=== PATIENT | male | born 1965 | race Caucasian/White ===

== ENCOUNTER 2020-11-07 13:52 | Outpatient (CLI) | payer BC, SELFPAY ==
--- NOTE | ~2020-11-07 | XR_ITS ---
EXAMINATION: 1. XR knee LT min 4V 2. XR knee RT min 4V DATE: 11/07/2020 14:59 INDICATION: Bilateral knee pain. TECHNIQUE: 4 views of right knee and 4 views of left knee on a total of 5 radiographs were obtained. COMPARISON: None. FINDINGS: RIGHT KNEE: Bone alignment is normal. No fracture. There is mild tricompartmental osteoarthritis kirk acterized by tiny marginal osteophytes. No knee joint effusion. LEFT KNEE: Bone alignment is normal. No fracture. There is mild tricompartmental osteoarthritis gunjan cterized by tiny marginal osteophytes. No knee joint effusion. IMPRESSION: 1. Mild osteoarthritis of the knees. Reviewed, dictated and finalized at location A. ECTION WORKER IMPRESSION: 1. Mild osteoarthritis of the knees.
== END 2020-11-07 13:53 | disposition home or self-care (01) ==
LOC: CHSIMG 13:56
PROVIDERS: PCP Internal Medicine; Visit Provider Internal Medicine
DX: M25.562 Pain in left knee (principal); M25.561 Pain in right knee
CPT/HCPCS: 73564

== ENCOUNTER 2021-02-19 17:21 | Emergency (ER) | payer BC, SELFPAY ==
[2021-02-19 17:48] VITALS: BP 119/83; PULSE 76; RESP 20; TEMP 36.7; O2SAT 95
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
== END 2021-02-19 18:02 | disposition home or self-care (01) ==
PROVIDERS: Emergency Provider Emergency Medicine; PCP Internal Medicine
DX: S79.921A Unspecified injury of right thigh, initial encounter (principal); W22.8XXA Striking against or struck by other objects, initial encounter
CPT/HCPCS: 99282

== ENCOUNTER 2021-07-30 22:22 | Emergency (ER) | payer BC, SELFPAY ==
--- NOTE | ~2021-07-30 | XR_ITS ---
EXAMINATION: XR chest 1V portable 07/30/2021 23:10 INDICATION: Chest pain PROCEDURE: AP portable chest COMPARISON: No prior studies for comparison. FINDINGS: The lungs are clear. The cardiomediastinal silhouette is within normal limits. There are no pleural effusions. There is no pneumothorax suspected. IMPRESSION: 1: NO ACUTE CARDIOPULMONARY DISEASE. Reviewed, dictated and finalized at location A. HER PRODUCTION
--- NOTE | 2021-07-30 22:41 | ECG_ITS ---
Measurements Intervals [place] Rate: 68 P: 64 MI: 192 QRS: 59 QRSD: 93 T: 49 QT: 396 QTc: 422 Interpretive Statements SINUS RHYTHM INCOMPLETE RIGHT BUNDLE BRANCH BLOCK BASELINE ARTIFACT- I, II, III, AVR, AVL, AVF, V1-V6 BORDERLINE ECG Electronically Signed On 07-31-2021 6:48:01 LEARNING ADMINISTRATOR by Micah Jhaveri D.O.
[2021-07-30 22:48] VITALS: BP 142/77; PULSE 71; RESP 15; TEMP 36.4; O2SAT 96
[2021-07-30 23:02] LABS: Basophils Absolute Auto 0.12 K/mm3 (0.00-0.10); Basophils Percent Auto 1.4 % (0.0-1.0); Eosinophils Absolute Auto 0.39 K/mm3 (0.02-0.50); Eosinophils Percent Auto 4.5 % (1.0-6.0); Hematocrit 44.2 % (40.0-54.0); Immature Granulocyte Absolute 0.02 K/mm3 (0.00-0.00); Immature Granulocyte Percent A 0.2 % (0.0-0.0); Lymphocytes Absolute Auto 3.37 K/mm3 (1.10-4.50); Mean Corpuscular HGB Conc 33.9 g/dL (32.0-36.0); Mean Corpuscular Hemoglobin 30.5 pg (27.0-31.0); Mean Platelet Volume 9.1 fl (8.7-11.0); Monocytes Absolute Auto 0.61 K/mm3 (0.10-0.90); Monocytes Percent Auto 7.1 % (2.0-11.0); Neutrophils Absolute Auto 4.1 K/mm3 (1.7-7.2); Neutrophils Percent Auto 47.8 % (50.0-70.0); Platelet Count Result 315 K/mm3 (150-420); Red Blood Count 4.91 M/mm3 (4.70-6.10); Red Cell Distribution Width 12.5 % (11.6-14.4); White Blood Count 8.6 K/mm3 (4.8-10.8)
[2021-07-30 23:20] LABS: Alanine Aminotransferase 34 U/L (16-63); Albumin Level 3.8 g/dL (3.4-5.0); Alkaline Phosphatase 80 U/L (46-116); Anion Gap 11 mmol/L (8-16); Aspartate Amino Transferase 14 U/L (15-37); Bilirubin,Total 0.8 mg/dL (0.00-1.00); Blood Urea Nitrogen 19 mg/dL (7-18); Calcium 8.9 mg/dL (8.5-10.1); Carbon Dioxide 24 mmol/L (21-32); Chloride 106 mmol/L (98-108); Estimated CRCL calculation 106 ml/min; Estimated Glomerular Filt Rate > 60; Glucose 175 mg/dL (70-99); Lactic Acid Reflex 1.9 mmol/L (0.4-2.0); Osmolality Calculated 298 mOsm/kg (285-295); Potassium 4.2 mmol/L (3.5-5.1); Sodium 141 mmol/L (136-145); Total Protein 6.8 g/dL (6.4-8.2); Troponin I 11.2 ng/L (0.00-60.4)
[2021-07-30] MEDS: ASPIRIN 325 MG ENTERIC TABLET PO (23:37)
--- NOTE | 2021-07-30 23:45 | PC.NURSE ---
pt refused to have an IV started and refused IV fluid. md Lima notified
--- NOTE | 2021-07-31 00:35 | ED.CHESTPAIN ---
HPI - Chest Pain General Chief Complaint: Chest Pain Stated Complaint: hard time breathing,chest pain, may pass out Time Seen by Provider: 07/30/21 22:24 Source: patient and RN notes reviewed Mode of arrival: ambulatory Limitations: no limitations History of Present Illness complaint: chest heaviness Onset (ago): hour(s) (2) Timing of current episode: constant Prior episodes: No Onset: during rest and during exertion Pain location: substernal Pain radiation: none Severity: mild Pain scale (0-10): 2 Quality: heaviness Relieving factors: nothing Exacerbating factors: nothing Risk Factors Coronary artery disease risk factors: hyperlipidemia and hypertension Pulmonary embolism risk factors: immobilization Related Data Home Medications Medication Instructions Recorded Confirmed atorvastatin 10 mg PO DAILY 02/19/21 07/30/21 Allergies Allergy/AdvReac Type Severity Reaction Status Date / Time No Known Allergies Allergy Verified 07/30/21 22:45 Review of Systems Review of Systems: All systems reviewed & are unremarkable except as noted in HPI and below PMFSH Past Medical History Medical History (Updated 07/31/21 @ 01:34 by Carmencita Lima MD) Diabetes Hypertension 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 embolic cerebrovascular accident (CVA) Surgical History Surgical History (Updated 02/19/21 @ 23:10 by Roly Che MD) H/O toe surgery Family History Family History (Updated 02/19/21 @ 23:12 by Roly Che MD) Mother Diabetes mellitus Father Diabetes mellitus Heart disease Social History Social History (Updated 02/19/21 @ 23:13 by Roly Che MD) Smoking packs per day: 1 Smoking cigarettes per day: 20.0 Smoking status: Current every day smoker Tobacco type: cigarettes Alcohol intake: never Sexual Orientation (if Verbalized by the Patient): Straight or Heterosexual Exam Const: General: no acute distress and alert Nutritional Appearance: well nourished Orientation/consciousness: patient oriented x3 HENMT: Head: normal to inspection Ears: external ears normal and TM's normal bilaterally Mouth: Yes lip normal and Yes moist mucous membranes Teeth and gingiva: dentition normal Eyes: Conjunctivae: conjunctivae normal Pupils: Equal, round and reactive pupils present EOM: EOMs intact bilaterally Neck: Neck: normal visual inspection and no lymphadenopathy Chest: Chest palpation & inspection: normal inspection of the chest Resp: Effort & Inspection: normal respiratory effort Auscultation: clear to auscultation bilaterally Cardio: Rate: regular rate Rhythm: regular rhythm GI: Auscultation: normal bowel sounds : General: Yes bladder normal to palpation and Yes no CVA tenderness Male General Exam: Yes normal external exam Testes: Testes normal Back/Spine/Pelvis: Back: no CVA tenderness Skin: General skin exam: normal color Rashes: no rashes Neuro: General: patient oriented x3, moves all extremities, no meningeal signs, no focal motor deficits and CN's II-XI intact bilaterally Cranial nerves: Yes Nystagmus not present Extrem: General: normal to inspection and no pedal edema Psych: Appearance: grossly normal and well kempt Mental Status: mental status grossly normal Thought content: Yes Normal thought content present Course Course Emergency Course: All sxs were resolved in the ED. no acute chest pain, SOB or dizziness Reevaluation(s) Reevaluation #1: VSS. no acute sxs Date: 07/30/21 Time: 23:22 Vital Signs Vital signs: Vital Signs Temperature 36.4 C 07/30/21 22:48 Pulse Rate 71 07/30/21 22:48 Respiratory Rate 15 07/30/21 22:48 Blood Pressure 142/77 H 07/30/21 22:48 Pulse Oximetry 96 07/30/21 22:48 Temperature 36.4 C 07/30/21 22:48 Pulse Rate 71 07/30/21 22:48 Respiratory Rate 15 07/30/21 22:48 Blood Pressure 142/77 H 07/30/21 22:48 Pulse Oximetry 96 07/30/21 22:48 MDM - Chest Pain Differential Diagnosis
[2021-07-31 00:58] LABS: Troponin I 11.6 ng/L (0.00-60.4)
[2021-07-31 01:51] VITALS: BP 115/61; PULSE 70; RESP 15; O2SAT 96
== END 2021-07-31 01:52 | disposition home or self-care (01) ==
PROVIDERS: Emergency Provider Emergency Medicine; PCP Internal Medicine
DX: R07.89 Other chest pain (principal)
CPT/HCPCS: 36415; 71045; 80053; 83605; 84484; 85025; 93005; 99283; 99284; A9270

== ENCOUNTER 2021-10-14 08:28 | Outpatient (CLI) | payer BC, SELFPAY ==
--- NOTE | 2021-10-14 09:00 | EST_ITS ---
Patient Info Name: Juan Carlos Ibarra Age: 56 years : 1965 Gender: Male Ht: 68 in Wt: 244 lbs BSA: 2.35 m2 HR: 69 bpm BP: 136 / 84 mmHg Heart Rhythm: Sinus Rhythm Technical Quality: Good Exam Date: 10/14/2021 8:54 AM Exam Location: [facility] Patient Status: Outpatient Admit Date: 10/14/2021 Staff Ordering Physician: Jaswinder Knight MD Attending Provider: Jaswinder Knight MD Exercise Technologist: Kelsie Che CRT Exercise Physician: Idania Palm CEP Exam Type: CA stress test treadmill Study Info Indications ChestPain - An exercise stress test was performed. History/Risk Factors Hypertension: Yes Dyslipidemia: Yes Diabetes Mellitus: Yes Tobacco Use: Current - Every Day History/Risk Factors Current Smoker. Diabetes. Dyslipidemia. Hypertension. Obesity. Chest Pain. Summary 1. 1. Negative Keith exercise stress test for ischemic ST changes by ECG criteria. 2. 2. Reduced functional capacity, achieving 8.9 METs of workload. 3. 3. Appropriate HR response to exercise. 4. 4. Appropriate HR recovery at 1 minute post exercise. 5. 5. No imaging with stress testing. Protocol: Keith Stress ECG Details Stage: REST Duration (min): 1 min : 27 sec Speed (mph): 0.0 Grade (%): 0 HR (bpm): 69 SBP (mmHg): 136 DBP (mmHg): 84 METS: --- Stage: REST Duration (min): 6 min : 19 sec Speed (mph): 0.0 Grade (%): 0 HR (bpm): 75 SBP (mmHg): 136 DBP (mmHg): 84 METS: --- Stage: STAGE 1 Duration (min): 1 min : 0 sec Speed (mph): 1.7 Grade (%): 10 HR (bpm): 95 SBP (mmHg): 136 DBP (mmHg): 84 METS: --- Stage: STAGE 1 Duration (min): 2 min : 0 sec Speed (mph): 1.7 Grade (%): 10 HR (bpm): 102 SBP (mmHg): 136 DBP (mmHg): 84 METS: --- Stage: STAGE 1 Duration (min): 3 min : 0 sec Speed (mph): 1.7 Grade (%): 10 HR (bpm): 103 SBP (mmHg): 154 DBP (mmHg): 78 METS: --- Stage: STAGE 2 Duration (min): 1 min : 0 sec Speed (mph): 2.5 Grade (%): 12 HR (bpm): 119 SBP (mmHg): 154 DBP (mmHg): 78 METS: --- Stage: STAGE 2 Duration (min): 2 min : 0 sec Speed (mph): 2.5 Grade (%): 12 HR (bpm): 125 SBP (mmHg): 154 DBP (mmHg): 78 METS: --- Stage: STAGE 2 Duration (min): 3 min : 0 sec Speed (mph): 2.5 Grade (%): 12 HR (bpm): 131 SBP (mmHg): 154 DBP (mmHg): 78 METS: --- Stage: STAGE 3 Duration (min): 1 min : 0 sec Speed (mph): 3.4 Grade (%): 14 HR (bpm): 122 SBP (mmHg): 171 DBP (mmHg): 91 METS: --- Stage: STAGE 3 Duration (min): 1 min : 4 sec Speed (mph): 3.4 Grade (%): 14 HR (bpm): 136 SBP (mmHg): 171 DBP (mmHg): 91 METS: --- Stage: RECOVERY Duration (min): 0 min : 55 sec Speed (mph): 0.0 Grade (%): 0 HR (bpm): 112 SBP (mmHg): 171 DBP (mmHg): 91 METS: --- --
== END 2021-10-14 08:29 | disposition home or self-care (01) ==
PROVIDERS: PCP Internal Medicine; Visit Provider Internal Medicine
DX: R07.9 Chest pain, unspecified (principal)
CPT/HCPCS: 93017

== ENCOUNTER 2022-07-14 07:47 | Outpatient (CLI) | payer BC, SELFPAY ==
--- NOTE | ~2022-07-14 | US_ITS ---
EXAMINATION: US thyroid DATE: 07/14/2022 08:41 INDICATION: Thyrotoxicosis. TECHNIQUE: Multiple ultrasound images of the thyroid were obtained. COMPARISON: None. FINDINGS: The right thyroid lobe measures 6.7 x 2.8 x 2.0 cm. The left thyroid lobe measures 6.8 x 3.9 x 3.6 c m. The thyroid demonstrates heterogeneous echogenicity and multiple nodules. In the left thyroid lobe , there is a 4.4 cm solid, isoechoic, wider than tall nodule with ill-defined margin without echogeni c foci (TI-RADS TR3). In the left thyroid lobe, there is a 3.3 cm solid, isoechoic, taller than wide nodule with ill-defined margin without echogenic foci (TR4). In the right thyroid lobe, there is a 1. 8 cm solid, hypoechoic, wider than tall nodule with lobulated margin without echogenic foci (TR4). IMPRESSION: 1. Multinodular goiter. Ultrasound-guided fine-needle aspiration of 2 nodules is recommended. Reviewed, dictated and finalized at location A. ER COMPOUNDER IMPRESSION: 1. Multinodular goiter. Ultrasound-guided fine-needle aspiration of 2 nodules i s recommended.
--- NOTE | ~2022-07-14 | NM_ITS ---
EXAMINATION: NM thyroid scan w uptake DATE: 07/15/2022 15:55 INDICATION: Thyrotoxicosis. COMPARISON: Ultrasound 07/14/2022 TECHNIQUE: 0.203 mCi I-123 was administered orally. Scintigraphic images of the thyroid gland were o btained at 24 hours. Thyroid uptake was calculated by the technologist. FINDINGS: The thyroid uptake measurement is nondiagnostic (normal 10-30%). There is heterogeneous activity in t he thyroid correlating with a multinodular goiter by ultrasound. IMPRESSION: 1. Heterogeneous activity in the thyroid correlating with a multinodular goiter by ultrasound. 2. Nondiagnostic thyroid uptake measurement. A repeat exam is recommended. Reviewed, dictated and finalized at location A. LFA DEHYDRATOR OPERATOR IMPRESSION: 1. Heterogeneous activity in the thyroid correlating with a multinodular goite r by ultrasound. 2. Nondiagnostic thyroid uptake measurement. A repeat exam is recommended.
== END 2022-07-14 07:48 | disposition home or self-care (01) ==
LOC: CHSIMG 07:48
PROVIDERS: PCP Internal Medicine; Visit Provider Internal Medicine
DX: E05.90 Thyrotoxicosis, unspecified without thyrotoxic crisis or storm (principal)
CPT/HCPCS: 76536; 78014; A9516

== ENCOUNTER 2022-12-22 07:29 | Outpatient (CLI) | payer BC, SELFPAY ==
--- NOTE | ~2022-12-22 | CT_ITS ---
CT Scan of the Chest without Contrast: Clinical Indication: Lung cancer screening, personal history of nicotine dependence Technique: Contiguous sections were acquired throughout the chest without intravenous contrast. Dose reduction technique was used on this scan by utilizing automated exposure control and iterative recon struction technique. The dose-length product (DLP) was 281.49 mGy-cm. Findings: There is no evidence of any significant mediastinal, hilar or axillary lymphadenopathy. The mediastin al soft tissues appear normal. There is no evidence of pleural or pericardial effusion. Calcified right lower lobe granuloma noted. There are areas of scarring in the right lower lobe. Ther e is additional mild scarring at the lingula. Images through the upper abdomen reveal no abnormalities. DISH of the thoracic spine noted. Impression: Lung RADS 2: Benign appearance. 12 month follow-up screening CT advised. Reviewed, dictated and finalized at [facility]. Impression: Lung RADS 2: Benign appearance. 12 month follow-up screening CT advised.
== END 2022-12-22 07:30 | disposition home or self-care (01) ==
LOC: CHSIMG 07:31
PROVIDERS: PCP Internal Medicine; Visit Provider Internal Medicine
DX: Z12.2 Encounter for screening for malignant neoplasm of respiratory organs (principal); Z87.891 Personal history of nicotine dependence
CPT/HCPCS: 71271

== ENCOUNTER 2024-10-26 13:27 | Outpatient (CLI) | payer OTHER, SELFPAY ==
--- NOTE | ~2024-10-26 | US_ITS ---
EXAMINATION: US thyroid DATE: 10/26/2024 13:53 INDICATION: Hyperthyroidism. TECHNIQUE: Multiple ultrasound images of the thyroid were obtained. COMPARISON: Ultrasound 07/14/2022, thyroid scintigraphy 07/14/2022 FINDINGS: The right thyroid lobe measures 6.0 x 3.0 x 2.3 cm. The left thyroid lobe measures 4.7 x 4.0 x 3.0 c m. In the right thyroid lobe, there is a 2.3 cm solid, hypoechoic, wider than tall nodule with stephen h margin without echogenic foci (TI-RADS TR4). The right thyroid lobe, there is a 2.3 cm solid, hypoe choic, solid nodule with ill-defined margin without echogenic foci (TR4). In the left thyroid lobe, t here is a 3.7 cm solid, hypoechoic, wider than tall nodule with ill-defined margin without echogenic foci (TR4). IMPRESSION: 1. Multinodular goiter, stable from 07/14/2022. Ultrasound-guided fine-needle aspiration of 2 nodules is recommended. Reviewed, dictated and finalized at location A. BUSINESS OBJECTS DEVELOPER IMPRESSION: 1. Multinodular goiter, stable from 07/14/2022. Ultrasound-guided fine-needle as piration of 2 nodules is recommended.
--- OUTSIDE RECORDS SUMMARY | 2024-10-26 13:35 | XMS_ITS ---
Author Organization Unknown Address [address] [place] [phone] Phone Care Team Providers Care Trust Evaluation Supervisor Name Role Phone ESTRELLA MARTINEZ Attending Unavailable SHINE NGUYEN Primary Unavailable Immunization Immunization Date Status Additional Notes Code Code System Hep A, adult 03/01/2013 Completed 52 CVX Tdap 12/15/2022 Completed 115 CVX Pneumococcal conjugate PCV 13 11/05/2020 Completed 133 CVX Influenza, split virus, quadrivalent, PF 06/03/2021 Completed 150 CVX zoster recombinant 11/05/2020 Completed 187 CVX zoster recombinant 09/23/2021 Completed 187 CVX COVID-19, mRNA, LNP-S, PF, 3 0 mcg/0.3 mL dose 04/01/2021 Completed 208 CVX COVID-19, mRNA, LNP-S, PF, 3 0 mcg/0.3 mL dose 04/20/2021 Completed 208 CVX COVID-19, mRNA, LNP-S, PF, 3 0 mcg/0.3 mL dose, vicki-sucrose 10/26/2021 Completed [address] CHEST/LUNG WO CONTRAST - Completed: 05/17/2024 14:50 LOINC: EXAM DESCRIPTION: CT CHEST/LUNG WO CONTRAST REASON FOR STUDY: No chest complaints, follow up lung nodule. History of emphysema. Quit smoking 6 months ago. Duration: n/a TECHNIQUE: CT scan of the chest performed without intravenous contrast using helical scanning technique. Reconstructed coronal and sagittal MPR images reviewed. All images stored on PACS. Automated exposure control was used as a dose optimization technique for this examination. COMPARISON: CT chest dated 12/29/2023. FINDINGS: The sensitivity for detection of solid visceral lesions is diminished without the use of intravenous contrast. LUNGS: There is a stable linear bandlike scar-like opacity in the right lower lobe adjacent to the major fissure measuring 1.6 x 1 cm in greatest axial dimensions, similar to prior exam when it measured 1.7 x 0.8 cm. There is stable 0.4 cm subpleural nodule at the posterolateral aspect of the right lower lobe with peripheral calcification as evidence for old granulomatous disease. There is minimal recurrent atelectasis or scar of the posterior costophrenic angle on the right, similar to prior exam. Lungs otherwise appear clear. PLEURA: No effusion. No pneumothorax. MEDIASTINUM/NAVID: No identified masses or abnormal nodes. HEART: Heart size is normal with no pericardial effusion. CORONARY ARTERY CALCIFICATION: Mild. VASCULATURE: No thoracic aortic aneurysm. AXILLA: No adenopathy. CHEST WALL: No masses. No subcutaneous air. HARDWARE/LINES/TUBES: None. UPPER ABDOMEN: No significant abnormality. MUSCULOSKELETAL: No acute abnormality. OTHER: No other significant abnormality. IMPRESSION: Stable linear bandlike scar-like opacity in the right lower lobe adjacent to the major fissure. THIS IS AN ELECTRONICALLY VERIFIED FINAL REPORT 05/17/2024 10:55 PM - Electronically signed by De Saavedra M.D., D.O. De Saavedra M.D., D.O. MW: [id number] Report ID: [id number] Reading Location: [place] [address] Social History Type Status Start Date End Date Code Code Syst em Smoking History Never smoker (Never Smoked) 274148943 SNOMED CT Sex Male Hospital Discharge Instructions Should you have any questions prior to discharge, please contact a member of your healthcare team. If you have left the hospital and have any questions, please contact your primary care physician. Reason For Referral No Data Found Allergies and Adverse Reactions Allergy Substance Reaction Severity Start Date Concern Status Co de Code System No Known Drug Allergies Active 192741656 SNOMED-CT Plan of Treatment CT Chest CA Screen (61073) 12/29/2023 Pulmonary Function Test 01/29/2024 CT Chest/Lung WO Contrast (19590) 05/17 Encounters Encounter Diagnosis Start Date Code Code Sys tem Other nonspecific abnormal finding of lung field 05/17 SNOMED-CT Personal Care Team Section Performer Name Performer Role Active Date Inactive Da PATRICK Dyer PCP - Primary care physician 2023-12-29 Imaging Narrative Notes
--- OUTSIDE RECORDS SUMMARY | 2024-10-26 13:35 | XMS_ITS | Clinical Summary ---
Author Organization [facility] Address [address] [place] [id number] Care Team Providers Care Day Haul [employer] Charter Bus Driver Name Role Phone Unavailable Primary Care Provider Unavailabl e Social History Tobacco Use Types Packs/Day Years Used Date Smoking Tobacco: Never Assessed Sex and Gender Information Value Date Recorded Sex Assigned at Not on file Legal Sex Male 8:39 PM CDT Gender Identity Not on file Sexual Orientation Not on file Plan of Treatment Health Maintenance Due Date Last Done Comments Colorectal Cancer Screening Colonoscopy (10 Years) 1965 Annual Physical 1970 Hepatitis C 1985 DTaP, Tdap and Td Vaccines ( 1 - Tdap) 1986 Hepatitis B Vaccines (1 of 3 - 19+ 3-dose series) 1986 Zoster Vaccines (1 of 2) 2017 COVID-19 Vaccine (2023-2 5 season) 2024 Influenza Adult (#1) 2024 Meningococcal B Vaccine Aged Out No l onger eligible based on patient's age to complete this topic Meningococcal Vaccine Aged Out No hilary burke eligible based on patient's age to complete this topic Pneumococcal Vaccine: Pediat rics (0 to 5 Years) and At-Risk Patients (6 to 64 Years) Aged Out No longer eligible b ased on patient's age to complete this topic RSV Immunizations Under 20 Months Aged Out No longer eligible based on patient's age to complete this topic
--- OUTSIDE RECORDS SUMMARY | 2024-10-26 13:35 | XMS_ITS ---
Author Organization Unknown Address [address] [place] [phone] Phone Care Team Providers Care Exhibit Designer Name Role Phone SHINE NGUYEN Attending Unavailable Immunization Immunization Date Status Additional Notes [...] dose, vicki-sucrose 10/26/2021 Completed 217 CVX Results KNEE 3V RIGHT - Completed: 0 03/09/2024 13:18 LOINC: EXAM DESCRIPTION: KNEE 3V RIGHT REASON FOR STUDY: pain and swelling in knee. difficulty bending Duration: years, worsening the last few days TECHNIQUE: 3 radiographic view(s) of the right knee . COMPARISON: None available FINDINGS: The alignment is normal. There is no fracture. Mild patellofemoral compartment knee osteoarthritis. No aggressive bone lesions. No knee effusion. Mild osteopenia. IMPRESSION: No acute osseous abnormality. Mild patellofemoral compartment right knee osteoarthritis. THIS IS AN ELECTRONICALLY VERIFIED FINAL REPORT 03/10/2024 4:56 PM - Electronically signed by Leonor Arechiga M.D. AT: AT Report ID: [id number] Reading Location: [id number] Social History Type Status Start Date End Date Code Code Syst em Smoking History Never smoker (Never Smoked) [id number] SNOMED CT Sex Male Hospital Discharge Instructions [...] Code System No Known Drug Allergies Active [id number] SNOMED-CT Plan of Treatment CT Chest CA Screen (82586) 12/29/2023 Pulmonary Function Test 01/29/2024 CT Chest/Lung WO Contrast (58392) 05/17 Encounters Encounter Diagnosis Start Date Code Code Sys tem Idiopathic osteoarthritis 03/09/2024 [id number] SN OMED-CT Personal Care Team Section Performer Name Performer Role Active Date Inactive PATRICK Barry PCP - Primary care physician 2023-12-29 Imaging Narrative Notes
--- OUTSIDE RECORDS SUMMARY | 2024-10-26 13:35 | XMS_ITS ---
Author Organization Unknown Address [address] [place] [address] [phone] Phone Care Team Providers Care Access Specialist Name Role Phone SHINE NGUYEN Attending Unavailable [...] vicki-sucrose 10/26/2021 Completed [address] CHEST CA SCREEN - Complet ed: 12/29/2023 13:39 LOINC: EXAM DESCRIPTION: CT CHEST CA SCREEN REASON FOR STUDY: Screening CT of the chest in a current smoker with a 30 pack year smoking history. Additional history: None. TECHNIQUE: Low dose CT scan of the chest was performed without intravenous contrast using helical scanning technique. The exam extends from the lung apices through the lung bases. Automatic exposure control was used as a dose optimization technique. NOTE: This study was performed for the specific purposes of lung cancer screening and is not an alternative to diagnostic chest CT. RADIATION DOSE: CT dose index volume (CTDIvol) = 4.47 mGy COMPARISON: None FINDINGS: SMOKING RELATED LUNG DISEASE: Mild centrilobular pulmonary emphysema. Non dependent subpleural reticular opacities in the left lower lobe may reflect mild fibrotic change. Curvilinear band of atelectasis or scarring in the medial right lower lobe. Mild bronchial wall thickening and endobronchial debris. LUNG NODULES: Perifissural nodular opacity in the right lower lobe (axial image 121) which measures 1.6 x 0.6 cm on axial images. This has a more flattened bandlike appearance on coronal and sagittal reconstructions and might therefore represent scarring or atelectasis but should be followed. A few additional tiny nodules are seen, for example 2 mm in the peripheral right upper lobe (axial image 92). Calcified granuloma in the right lower lobe. CORONARY ARTERY CALCIFICATION: Present. OTHER: No mediastinal or hilar lymph node enlargement by size criteria. No acute findings in the visualized upper abdomen. No acute skeletal abnormality. Thoracic spondylosis and diffuse idiopathic skeletal hyperostosis. IMPRESSION: ? ? Perifissural nodular opacity in the right lower lobe with a few additional small nodules. ? ? Mild pulmonary emphysema. ? ? Bronchial wall thickening and endobronchial debris which can be seen with chronic bronchitis. Lung-RADS category 4A: Suspicious. Recommendation: Low dose CT of chest in 3 months. THIS IS AN ELECTRONICALLY VERIFIED FINAL REPORT 12/29/2023 3:54 PM - Electronically signed by Miguel Angel Silva M.D. JR: Report ID: [id number] Reading Location: [place] [address] Social History Type Status Start Date End Date Code Code Syst em Smoking History Never smoker (Never Smoked) 121830270 Compliance 11 CT Sex Male Hospital Discharge Instructions Should [...] Code System No Known Drug Allergies Active 477337827 SNOMED-CT Plan of Treatment CT Chest CA Screen (43394) 12/29/2023 Pulmonary Function Test 01/29/2024 CT Chest/Lung WO Contrast (97476) 05/17 Encounters Encounter Diagnosis Start Date Code Code Sys tem Encounter for screening for malignant neoplasm of respiratory organs 12/29/2023 SNOMED-CT Personal Care Team Section Performer Name Performer Role Active Date Inactive Da PATRICK Dyer PCP - Primary care physician 2023-12-29 Imaging Narrative Notes
--- OUTSIDE RECORDS SUMMARY | 2024-10-26 13:35 | XMS_ITS ---
Author Organization Unknown Address [address] [place] [address] [phone] Phone Care Team Providers Care Technology Development Intern Name Role Phone ESTRELLA MARTINEZ Attending Unavailable [...] mL dose, vicki-sucrose 10/26/2021 Completed 217 CVX Social History Type Status Start Date End Date Code Code Syst em Smoking History Never smoker (Never Smoked) 709854931 SNOMED CT Sex Male Hospital Discharge Instructions [...] Code System No Known Drug Allergies Active 071899231 SNOMED-CT Plan of Treatment CT Chest CA Screen (26937) 12/29/2023 Pulmonary Function Test 01/29/2024 CT Chest/Lung WO Contrast (92028) 05/17 Encounters Encounter Diagnosis Start Date Code Code Sys tem Solitary nodule of lung 01/29/2024 [id number] [facility] ED-CT Personal Care Team Section Performer Name Performer Role Active Date Inactive PATRICK Barry PCP - Primary care physician 2023-12-29 Procedures Notes [facility] 02/04/2024 17:20 PFT Physician Interpretation: 1. Moderate obstructive ventilatory impairment per GOLD criteria. 2. No significant response to bronchodilators, based on change of FVC and FEV1 to bronchodilators. However, this does not preclude the clinic to use of bronchodilators. 3. Mild air trapping. 4. Normal diffusion capacity; recommend adjustment with hemoglobin concentration.
== END 2024-10-26 13:28 | disposition home or self-care (01) ==
LOC: CHSIMG 13:31
PROVIDERS: PCP Internal Medicine; Visit Provider Internal Medicine
DX: E05.90 Thyrotoxicosis, unspecified without thyrotoxic crisis or storm (principal)
CPT/HCPCS: 76536

== ENCOUNTER 2024-11-02 13:53 | Outpatient (CLI) | payer OTHER, SELFPAY ==
--- OUTSIDE RECORDS SUMMARY | 2024-11-02 15:51 | XMS_ITS ---
Author Organization Unknown Address [address] [place] [address] [phone] Phone Care Team Providers Care Behavior Therapist Name Role Phone ESTRELLA MARTINEZ Attending Unavailable [...] Saavedra M.D., D.O. MW: JANETTE Report ID: [id number] Reading Location: [place] [address] Social History Type Status Start Date End Date Code Code Syst em Smoking History Never smoker (Never Smoked) 347514682 SNOMED CT Sex Male Hospital Discharge Instructions [...] Code System No Known Drug Allergies Active 915642448 SNOMED-CT Plan of Treatment CT Chest CA Screen (34462) 12/29/2023 Pulmonary Function Test 01/29/2024 CT Chest/Lung WO Contrast (28768) 05/17 Encounters Encounter Diagnosis Start Date Code Code Sys tem Other nonspecific abnormal finding of lung field 05/17 SNOMED-CT Personal Care Team Section Performer Name Performer Role Active Date Inactive Da PATRICK Dyer PCP - Primary care physician 2023-12-29 Imaging Narrative Notes
--- OUTSIDE RECORDS SUMMARY | 2024-11-02 15:51 | XMS_ITS ---
Author Organization Unknown Address [address] [place] [address] [phone] Phone Care Team Providers Care Automatic Typewriter Inspector Name Role Phone SHINE NGUYEN Attending Unavailable [...] Leonor Arechiga M.D. AT: AT Report ID: [id number] Reading Location: [id number] Social History Type Status Start Date End Date Code Code Syst em Smoking History Never smoker (Never Smoked) 624289687 SNOMED CT Sex Male Hospital Discharge Instructions [...] Code System No Known Drug Allergies Active 861907585 SNOMED-CT Plan of Treatment CT Chest CA Screen (50758) 12/29/2023 Pulmonary Function Test 01/29/2024 CT Chest/Lung WO Contrast (68325) 05/17 Encounters Encounter Diagnosis Start Date Code Code Sys tem Idiopathic osteoarthritis 03/09/2024 743701318 SN OMED-CT Personal Care Team Section Performer Name Performer Role Active Date Inactive PATRICK Barry PCP - Primary care physician 2023-12-29 Imaging Narrative Notes
--- OUTSIDE RECORDS SUMMARY | 2024-11-02 15:51 | XMS_ITS ---
Author Organization Unknown Address [address] [place] [address] [phone] Phone Care Team Providers Care Supervisor Customer Records Division Name Role Phone ESTRELLA MARTINEZ Attending Unavailable [...] em Smoking History Never smoker (Never Smoked) 236148916 SNOMED CT Sex Male Hospital Discharge Instructions [...] Code System No Known Drug Allergies Active 020739422 SNOMED-CT Plan of Treatment CT Chest CA Screen (88528) 12/29/2023 Pulmonary Function Test 01/29/2024 CT Chest/Lung WO Contrast (45791) 05/17 Encounters Encounter Diagnosis Start Date Code Code Sys tem Solitary nodule of lung 01/29/2024 874936452 [facility] ED-CT Personal Care Team Section Performer Name Performer Role Active Date Inactive PATRICK Barry PCP - Primary care physician 2023-12-29 Procedures Notes [facility] 02/04/2024 17:20 PFT Physician Interpretation: 1. Moderate obstructive ventilatory impairment per GOLD criteria. 2. No significant response to bronchodilators, based on change of FVC and FEV1 to bronchodilators. However, this does not preclude the clinic to use of bronchodilators. 3. Mild air trapping. 4. Normal diffusion capacity; recommend adjustment with hemoglobin concentration.
--- OUTSIDE RECORDS SUMMARY | 2024-11-02 15:52 | XMS_ITS | Clinical Summary ---
Author Organization [facility] Address [address] [place] [address] Care Team Providers Care Middle School Combination Teacher Name Role Phone Unavailable Primary Care Provider [...]
--- OUTSIDE RECORDS SUMMARY | 2024-11-02 15:52 | XMS_ITS ---
Author Organization Unknown Address [address] [place] [address] [phone] Phone Care Team Providers Care Hearing Healthcare Practitioner Name Role Phone SHINE NGUYEN Attending Unavailable [...] Miguel Angel Silva M.D. JR: Report ID: [id number] Reading Location: [place] [address] Social History Type Status Start Date End Date Code Code Syst em Smoking History Never smoker (Never Smoked) 509688991 [employer] CT Sex Male Hospital Discharge Instructions Should [...] Code System No Known Drug Allergies Active 336139095 SNOMED-CT Plan of Treatment CT Chest CA Screen (90268) 12/29/2023 Pulmonary Function Test 01/29/2024 CT Chest/Lung WO Contrast (13604) 05/17 Encounters Encounter Diagnosis Start Date Code Code Sys tem Encounter for screening for malignant neoplasm of respiratory organs 12/29/2023 SNOMED-CT Personal Care Team Section Performer Name Performer Role Active Date Inactive Da PATRICK Dyer PCP - Primary care physician 2023-12-29 Imaging Narrative Notes
== END 2024-11-02 13:54 | disposition home or self-care (01) ==
PROVIDERS: PCP Internal Medicine; Visit Provider Internal Medicine
DX: E05.90 Thyrotoxicosis, unspecified without thyrotoxic crisis or storm (principal)
CPT/HCPCS: 78014; A9516

== ENCOUNTER 2025-02-16 15:50 | Outpatient (CLI) | payer OTHER, SELFPAY ==
--- NOTE | ~2025-02-16 | CT_ITS ---
CT Scan of the Chest without Contrast: Clinical Indication: Right lower lobe pulmonary nodule Technique: Contiguous sections were acquired throughout the chest without intravenous contrast. Dose reduction technique was used on this scan by utilizing automated exposure control and iterative recon struction technique. The dose-length product (DLP) was 347.69 mGy-cm. COMPARISON: 12/22/2022 Findings: There is no evidence of any significant mediastinal, hilar or axillary lymphadenopathy. The mediastin al soft tissues appear normal. There is no evidence of pleural or pericardial effusion. Stable probable focal scar in the superior segment right lower lobe. Stable calcified right lower lob e granuloma peripherally. Images through the upper abdomen reveal no abnormalities. There is DISH of the thoracic spine. Impression: Stable focal scarring in the superior segment right lower lobe. Stable calcified granuloma. Reviewed, dictated and finalized at [facility]. Impression: Stable focal scarring in the superior segment right lower lobe. Stable calcifie d granuloma.
--- OUTSIDE RECORDS SUMMARY | 2025-02-16 16:02 | XMS_ITS | Referral Summary ---
Author Organization [facility] Address [address] [place] [address] Care Team Providers Care Pouncer Machine Name Role Phone Jaswinder Knight MD Primary Care Provider [phone] Encounters Date Type Department Care Team Description 02/13/2025 Results Follow-Up [facility] of [address] [address] Leticia Tirado MD T3, free, T4, free, TSH, Thyroid peroxidase antibody (TPO) 02/09/2025 3:15 PM CDT Lab [address] [address] Hyperthyroidism 02/09/2025 2:30 PM CDT Office Visit [facility] of [address] [address] Leticia Tirado MD Hyperthyroidism (Primary Dx) from Last 3 Months Allergies No known active allergies Medications metoprolol XL (TOPROL-XL) 25 mg extended release tablet Take 1 tablet (25 mg total) by mouth daily 5 Active methIMAzole (TAPAZOLE) 5 mg tablet Take 2 tablets (10 mg total) by mouth daily 5 Active cefuroxime (CEFTIN) 250 mg tablet Take 1 tablet (250 mg total) by mouth every 12 (twelve) hours 5 Active cetirizine (ZyrTEC) 10 mg tablet Take 1 tablet (10 mg total) by mouth daily 5 Active fluticasone propionate (FLONASE) 50 mcg/actuation nasal spray Administer 2 sprays into each nostril daily 5 Active sertraline (ZOLOFT) 100 mg tablet Take 1 tablet (100 mg total) by mouth daily 5 Active Active Problems Problem Noted Date Diagnosed Date Hyperthyroidism 02/09/2025 Immunizations Immunization Administration Dates Next Due Hep A, Adult 03/01/2013 Influenza, Quadrivalent, Spl it, Preservative Free, Intramuscular 06/03/2021 Pneumococcal Conjugate PCV 13 11/05/2020 Tdap 12/15/2022 ZOSTER Recombinant 09/23/2021,11/05/2020 Social History Tobacco Use Types Packs/Day Years Used Date Smoking Tobacco: Former Cigarettes Tobacco Cessation:Counseling Given: Not Answered Sex and Gender Information Value Date Recorded Sex Assigned at Not on file 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 Gender Identity Not on file Sexual Orientation Not on file Last Filed Vital Signs Vital Sign Reading Time Taken Comments Blood Pressure 110/66 02/09/2025 2:35 PM CDT Pulse 76 02/09/2025 2:35 PM CDT Temperature - - Respiratory Rate 17 02/09/2025 2:35 PM CDT Oxygen Saturation - - Inhaled Oxygen Concentration - - Weight 91.3 kg (201 lb 3.2 oz) 02/09/2025 2:35 P M CDT Height 172.7 cm (5' 8) 02/09/2025 2:35 PM CDT Body Mass Index 30.59 02/09/2025 2:35 PM CDT Plan of Treatment Not on file Procedures Procedure Name Priority Date/Time Associated Diagnosis Comments THYROID PEROXIDASE ANTIBODY Routine 02/09/2025 3:14 PM CDT Hyperthyroidism TSH Routine 02/09/2025 3:14 PM CDT Hyperthyroidism T4, FREE Routine 02/09/2025 3:14 PM CDT Hyperthyroidism T3, FREE Routine 02/09/2025 3:14 PM CDT Hyperthyroidism from Last 3 Months Results * Thyroid peroxidase antibody (TPO) (02/09/2025 3:14 PM CDT) Anti Thyroid Peroxidase <30 <=34 IUnits/mL Comment: ATPO Interpretive Data Results may be up to 28% higher in patients receiving Itraconazole. Current interpretive data was last revised 2020. Testing performed by: [facility], [address] [place]., [address] Blood 02/09/2025 3:14 PM CDT 02/10/2025 9:52 AM CDT us Leticia Tirado MD LAB BLOOD ORDERABLES Final Resul t LAN [address] [address] [place] [address] * T3, free (02/09/2025 3:14 PM CDT) Free T3 3.4 2.0 - 4.4 pg/mL Blood 02/09/2025 3:14 PM CDT 02/09/2025 7:49 PM CDT us Leticia Tirado MD LAB BLOOD ORDERABLES Final Resul t Performing Organization Address [facility] Co de Phone Number MASHAPAT HOPPER [address] [address] [place] [address] * (ABNORMAL) TSH (02/09/2025 3:14 PM CDT) Thyroid Stimulating Hormone 0.25(L) 0.30 - 4.20 mcIUnit/mL Blood 02/09/2025 3:14 PM CDT 02/09/2025 7:49 PM CDT us Leticia Tirado MD LAB BLOOD ORDERABLES Final Resul t Performing Organization Address [facility] Co de Phone Number LAN [address] [address] [facility] [employer] [place], [place] [phone] * T4, free (02/09/2025 3:14 PM CDT) Free T4 1.14 0.90 - 1.70 ng/dL Blood 02/09/2025 3:14 PM CDT 02/09/2025 7:49 PM CDT us Leticia Tirado MD LAB [place] [address] [place] [facility] [place], [place] [phone] from Last [address] [place] [address] [place] [address] EXCHANGE Care Teams Pouncer Machine Relationship Specialty Start Date End Date Jaswinder Knight MD [address] [place] [address] PCP - General Internal Medicine 1/31/23
--- OUTSIDE RECORDS SUMMARY | 2025-02-16 16:03 | XMS_ITS ---
Author Organization Unknown Address [address] [place] [address] [phone] Phone Care Team Providers Care General Pediatrician Name Role Phone ESTRELLA MARTINEZ Attending Unavailable [...] Saavedra M.D., D.O. MW: JANETTE Report ID: [id number] Reading Location: [place] [address] Social History Type Status Start Date End Date Code Code Syst em Smoking History Never smoker (Never Smoked) 436522367 SNOMED CT Sex Male Hospital Discharge Instructions [...] Code System No Known Drug Allergies Active 158968749 SNOMED-CT Plan of Treatment CT Chest CA Screen (76182) 12/29/2023 Pulmonary Function Test 01/29/2024 CT Chest/Lung WO Contrast (45961) 05/17 Encounters Encounter Diagnosis Start Date Code Code Sys tem Other nonspecific abnormal finding of lung field 05/17 SNOMED-CT Personal Care Team Section Performer Name Performer Role Active Date Inactive Da PATRICK Dyer PCP - Primary care physician 2023-12-29 Imaging Narrative Notes
--- OUTSIDE RECORDS SUMMARY | 2025-02-16 16:03 | XMS_ITS | Encounter Summary ---
Author Organization [facility] Healthcare Address [address] [place] [address] Care Team Providers Care Thread Drawer Name Role Phone Jaswinder Knight MD Primary Care Provider + [phone] Encounter Details Date Type Department Care Team (Latest Contact Info) Description 02/13/2025 Results Follow-Up [facility] [address] [address] [place] [id number] [address] T3, free, T4, free, TSH, Thyroid peroxidase antibody (TPO) Social History Tobacco Use Types Packs/Day Years Used Date Smoking Tobacco: Former Cigarettes Sex and Gender Information Value Date Recorded Sex Assigned at Not on file 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 Will continue watching without medications and reassess in June documented in this encounter Plan of Treatment Not on file documented as of this encounter Visit Diagnoses Not on filedocumented in this encounter Care Teams Thread Drawer Relationship Specialty Start Date End Date Jaswinder Knight MD [address] [place] [address] PCP - General Internal Medicine 10/07/22 documented as of this encounter
--- OUTSIDE RECORDS SUMMARY | 2025-02-16 16:03 | XMS_ITS ---
Author Organization Unknown Address [address] [place] [address] [phone] Phone Care Team Providers Care Mirror Silverer Name Role Phone SHINE NGUYEN Attending Unavailable [...] Leonor Arechiga M.D. AT: AT Report ID: [id number] Reading Location: [id number] Social History Type Status Start Date End Date Code Code Syst em Smoking History Never smoker (Never Smoked) 324418547 SNOMED CT Sex Male Hospital Discharge Instructions [...] Code System No Known Drug Allergies Active 499742485 SNOMED-CT Plan of Treatment CT Chest CA Screen (46705) 12/29/2023 Pulmonary Function Test 01/29/2024 CT Chest/Lung WO Contrast (42120) 05/17 Encounters Encounter Diagnosis Start Date Code Code Sys tem Idiopathic osteoarthritis 03/09/2024 223034617 SN OMED-CT Personal Care Team Section Performer Name Performer Role Active Date Inactive PATRICK Barry PCP - Primary care physician 2023-12-29 Imaging Narrative Notes
--- OUTSIDE RECORDS SUMMARY | 2025-02-16 16:03 | XMS_ITS | Clinical Summary ---
Author Organization [facility] Address [address] [place] [address] Care Team Providers Care Front End Technician Name Role Phone Jaswinder Knight MD Primary Care Provider + [phone] Allergies No known active allergies Medications metoprolol [...] Problem Noted Date Diagnosed Date Hyperthyroidism 02/09/2025 Encounters Date Type Department Care Team Description 02/13/2025 Results Follow-Up [facility] of [address] [address] Leticia Tirado MD T3, free, T4, free, TSH, Thyroid peroxidase antibody (TPO) 02/09/2025 3:15 PM CDT Lab [address] [address] Hyperthyroidism 02/09/2025 2:30 PM CDT Office Visit [facility] of [address], [place] [address] Leticia Tirado MD Hyperthyroidism (Primary Dx) from Last 3 Months Immunizations Immunization Administration Dates Next Due Hep [...] on file 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 Gender Identity Not on file Sexual Orientation Not on file Obstetrics History Last Filed Vital Signs Vital Sign Reading Time Taken Comments Blood Pressure 110/66 02/09/2025 2:35 PM CDT Pulse 76 02/09/2025 2:35 PM CDT Temperature - - Respiratory Rate 17 02/09/2025 2:35 PM CDT Oxygen Saturation - - Inhaled Oxygen Concentration - - Weight 91.3 kg (201 lb 3.2 oz) 02/09/2025 2:35 PM CDT Height 172.7 cm (5' 8) 02/09/2025 2:35 PM CDT Body Mass Index 30.59 02/09/2025 2:35 PM CDT Plan of Treatment Health Maintenance Due Date Last Done Comments Colon Cancer Screening-Colonoscopy 1967 Depression Screening 1967 Hepatitis C Screening 1967 Prostate Cancer Screening-PSA 1967 Hepatitis B Screening 1985 Regular Well Visit/Exam 18-64 1985 Covid-19 Vaccine ( - 2023-2 5 season) 2024 10/26/2021, 04/20/2021, 04/01/2021 Influenza Vaccine (Season Ended) 2025 06/03/2021 DTaP/Tdap/Td Vaccine (2 - Td or Tdap) 12/15/2032 12/15/2022 Pneumococcal vaccine <65 Aged Out 11/05/2020 No longer eligible based on patient's age to complete this topic Zoster Vaccine Completed 09/23/2021, 11/05/2020 Procedures Procedure Name Priority Date/Time Associated Diagnosis [...] was last revised 2020. Testing performed by: [facility], [address] [place]., [address] Blood 02/09/2025 3:14 PM CDT 02/10/2025 9:52 AM CDT Leticia Tirado MD LAB BLOOD ORDERABLES Final Resul t Performing Organization Address [facility] de Phone Number [facility] [address] [address] [place] [address] * T3, free (02/09/2025 3:14 PM CDT) Free T3 3.4 2.0 - 4.4 pg/mL Blood 02/09/2025 3:14 PM CDT 02/09/2025 7:49 PM CDT us Leticia Tirado MD LAB BLOOD ORDERABLES Final Resul t Performing Organization Address [facility] Co de Phone Number [facility] [address] [address] [employer] [place] [address] * (ABNORMAL) TSH (02/09/2025 3:14 PM CDT) Thyroid Stimulating Hormone 0.25(L) 0.30 - 4.20 mcIUnit/mL Blood 02/09/2025 3:14 PM CDT 02/09/2025 7:49 PM CDT Leticia Tirado MD LAB BLOOD ORDERABLES Final Resul t Performing Organization Address [facility] Co de Phone Number LAN [phone] [address] Department [place] [address] * T4, free (02/09/2025 3:14 PM CDT) Free T4 1.14 0.90 - 1.70 ng/dL Blood 02/09/2025 3:14 PM CDT 02/09/2025 7:49 PM CDT Leticia Tirado MD LAB BLOOD ORDERABLES Final Resul t Performing Organization Address [facility] Co de Phone Number MASHAPAT [address] [address] Department [place] [address] from Last 3 Months Insurance [facility] EXCHANGE [employer] [place] [place] EXCH[place] Care Teams Front End Technician Relationship Specialty Start Date End Date Jaswinder Knight MD [address] [place] [address] PCP - General Internal Medicine 10/07/22
--- OUTSIDE RECORDS SUMMARY | 2025-02-16 16:03 | XMS_ITS ---
Author Organization Unknown Address [address] [place] [address] [phone] Phone Care Team Providers Care Classroom Instructor Name Role Phone ESTRELLA MARTINEZ Attending Unavailable [...] em Smoking History Never smoker (Never Smoked) 778976330 SNOMED CT Sex Male Hospital Discharge Instructions [...] Code System No Known Drug Allergies Active 571427591 SNOMED-CT Plan of Treatment CT Chest CA Screen (55205) 12/29/2023 Pulmonary Function Test 01/29/2024 CT Chest/Lung WO Contrast (46257) 05/17 Encounters Encounter Diagnosis Start Date Code Code Sys tem Solitary nodule of lung 01/29/2024 [id number] [facility] ED-CT Personal Care Team Section Performer Name Performer Role Active Date Inactive PATRICK Barry PCP - Primary care physician 2023-12-29 Procedures Notes [facility] 02/04/2024 17:20 PFT Physician Interpretation: 1. Moderate obstructive ventilatory impairment per GOLD criteria. 2. No significant response to bronchodilators, based on change of FVC and FEV1 to bronchodilators. However, this does not preclude the clinic to use of bronchodilators. 3. Mild air trapping. 4. Normal diffusion capacity; recommend adjustment with hemoglobin concentration.
--- OUTSIDE RECORDS SUMMARY | 2025-02-16 16:03 | XMS_ITS ---
Author Organization Unknown Address [address] [place] [address] [phone] Phone Care Team Providers Care Genetic Counselor Name Role Phone SHINE NGUYEN Attending Unavailable [...] Miguel Angel Silva M.D. JR: Report ID: [id number] Reading Location: [place] [address] Social History Type Status Start Date End Date Code Code Syst em Smoking History Never smoker (Never Smoked) [id number] [employer] Sex Male Hospital Discharge Instructions Should [...] Code System No Known Drug Allergies Active [id number] SNOMED-CT Plan of Treatment CT Chest CA Screen (04545) 12/29/2023 Pulmonary Function Test 01/29/2024 CT Chest/Lung WO Contrast (05393) 05/17 Encounters Encounter Diagnosis Start Date Code Code Sys tem Encounter for screening for malignant neoplasm of respiratory organs 12/29/2023 SNOMED-CT Personal Care Team Section Performer Name Performer Role Active Date Inactive Da PATRICK Dyer PCP - Primary care physician 2023-12-29 Imaging Narrative Notes
== END 2025-02-16 15:51 | disposition home or self-care (01) ==
LOC: CHSIMG 15:52
PROVIDERS: PCP Internal Medicine
DX: R91.1 Solitary pulmonary nodule (principal); R91.8 Other nonspecific abnormal finding of lung field
CPT/HCPCS: 71250

== ENCOUNTER 2025-07-24 10:53 | Outpatient (CLI) | payer OTHER, SELFPAY ==
[2025-07-24 11:06] LABS: Hematocrit 40.7 % (40.0-54.0); Hemoglobin 13.9 g/dL (14.0-18.0); Mean Corpuscular HGB Conc 34.2 g/dL (32-36); Mean Corpuscular Hemoglobin 30.3 pg (27.0-31.0); Mean Corpuscular Volume 88.9 fL (78.0-102.0); Platelet Count Result 378 K/mm3 (150-420); Red Blood Count 4.58 M/mm3 (4.70-6.10); White Blood Count 10.7 K/mm3 (4.8-10.8)
[2025-07-24 11:31] LABS: Alanine Aminotransferase 22 U/L (6-50); Albumin Level 4.8 g/dL (3.5-5.1); Amylase 55 U/L (30-110); Anion Gap 10 mmol/L (4-12); Aspartate Amino Transferase 20 U/L (17-59); Blood Urea Nitrogen 11 mg/dL (9-20); CRP < 0.5 mg/dL (<1.0); Calcium 9.6 mg/dL (8.4-10.2); Carbon Dioxide 21 mmol/L (22-30); Chloride 109 mmol/L (98-107); Estimated Glomerular Filt Rate > 60; Glucose 89 mg/dL (65-110); Lipase 192 U/L (23-300); Osmolality Calculated 288 mOsm/kg (285-295); Potassium 4.5 mmol/L (3.4-5.0); Sodium 140 mmol/L (137-145); Total Protein 7.4 g/dL (6.3-8.2)
[2025-07-24 11:53] LABS: Alkaline Phosphatase 86 U/L (38-126)
[2025-07-24 17:42] LABS: Bilirubin,Total 0.8 mg/dL (0.2-1.3)
== END 2025-07-24 10:54 | disposition home or self-care (01) ==
LOC: CHSLAB 10:55
PROVIDERS: PCP Internal Medicine; Visit Provider Internal Medicine
DX: R10.9 Unspecified abdominal pain (principal); R19.7 Diarrhea, unspecified; R11.0 Nausea
CPT/HCPCS: 36415; 80053; 82150; 83605; 83690; 85027; 85652; 86140

== ENCOUNTER 2025-09-06 10:25 | Outpatient (CLI) | payer OTHER, SELFPAY ==
--- NOTE | ~2025-09-06 | CT_ITS ---
CT abdomen pelvis w con Clinical History: Diffuse abdominal pelvic pain . Comparison: None Technique: Axial images lung bases to symphysis pubis 100 mL Omnipaque 350 Coronal, sagittal reformats CT images acquired with automatic exposure control for dose reduction DLP: 687 mGy-cm Findings: Lung bases: Clear. Visualized heart and pericardium: Unremarkable. Liver: Enlarged. Steatosis. Gallbladder: Unremarkable. Spleen: Unremarkable. Pancreas: Unremarkable. Adrenal glands: Unremarkable. Kidneys: Right kidney- No hydronephrosis. No renal stones. Left kidney- No hydronephrosis. 2 mm stone. Distal esophagus/stomach: Mild distal esophageal wall thickening/esophagitis. Small bowel loops: Normal caliber and wall thickness. Colon: Diverticula. Normal caliber and wall thickness. Normal RLQ appendix. Nodes: No enlarged nodes. Peritoneum: No ascites. No free air. Urinary bladder: Unremarkable. Prostate: Unremarkable. Bones: No acute bony abnormality. L3 hemangioma. Additional small multilevel vertebral body hemangiomata. Soft tissues: Unremarkable. Aorta: No aneurysm or dissection. IVC: Unremarkable. Main portal vein/SMV/splenic vein: Patent. IMPRESSION: 1. No acute abnormality with additional findings as above. Reviewed, dictated and finalized at location R. [facility] [employer]
--- OUTSIDE RECORDS SUMMARY | 2025-09-06 10:40 | XMS_ITS | Clinical Summary ---
Author Organization [facility] Medical Office Building [address] Address [address] [place] [address] Care Team Providers Care Yarn Conditioner Name Role Phone Jaswinder Knight MD Primary Care Provider [phone] Allergies No known active allergies Medications metoprolol [...] on file Legal Sex Male 8:55 AM [employer] Gender Identity Not on file Sexual Orientation [...] Regular Well Visit/Exam 18-64 1983 Covid-19 Vaccine (4 - 2024-2 6 season) 2025 10/26/2021, 04/20/2021, 04/01/2021 Influenza Vaccine (#1) 2025 06/03/2021 DTaP/Tdap/Td Vaccine (2 - Td or Tdap) 12/15/2032 12/15/2022 Pneumococcal vaccine <65 Aged Out 11/05/2020 No longer eligible based on patient's age to complete this topic Zoster Vaccine Completed 09/23/2021, 11/05/2020 Insurance [employer] [facility] Care Teams Yarn Conditioner Relationship Specialty Start Date End Date Jaswinder Knight MD [address] [place] [address] PCP - General Internal Medicine 10/07/22
--- OUTSIDE RECORDS SUMMARY | 2025-09-06 10:40 | XMS_ITS | Data Portability ---
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 Polyarthralgi a; concern for psoriatic arthritis vs osteoarthritis (knees, thumbs, shoulders; hip/groin pain) - Obtain imaging today: X-rays of both knees, both hands (including thumbs), feet, and pelvis/hips to assess for erosions vs degenerative changes. - Order laboratory workup today to support diagnosis and establish baseline prior to systemic therapy. - Start meloxicam 15 mg once daily with food; discussed NSAID risks/benefits and advised good hydration; patient education provided. - Investigate insurance coverage for apremilast (Otezla) targeting both skin and joint symptoms; precertification to be initiated. - If Otezla not approved or inadequate, may initiate anti-TNF therapy (adalimumab or etanercept); provide patient information on these options. - Activity modification discussed (limit kneeling/squatting as tolerated). 2. Psoriasis with nail involvement - Coordinate with dermatology; request/obtain dermatology records (recent initial visit). Systemic therapy as above (Otezla vs biologic) with goal to address skin and joint disease. 3. Knee osteoarthritis (probable, right > left) with poor response to prior intra-articular corticosteroid - Addressed as part of item #1 with NSAID trial and imaging; no repeat steroid injection planned today per patient history and preference. 4. Obesity; weight loss in progress - Noted ~50 lb weight loss on GLP-1 therapy with goal of additional 20-25 lb; continue current approach per existing care team. 5. History of emphysema; former smoker - Stable by report; no acute respiratory complaints today. Follow-up: Plan to see patient back in two months to review imaging/labs, assess response to meloxicam, and finalize systemic therapy selection based on coverage and clinical findings. Total time spent: 60 minutes (Tracked by Ebony) grayson Not available 06/26/2025 11:16:08 2025 2025 1. Psoriatic arthritis, improving on adalimumab - Continue adalimumab (Humira) as prescribed; early but positive response with improved function - Avoid NSAIDs (e.g., meloxicam) for now given concurrent GI symptoms; use acetaminophen as needed for pain - Monitor right thumb dactylitic changes; expect further improvement with continued biologic therapy - Return visit in approximately 4 months (late December/early January) 2. Psoriasis, limited plaque disease - Continue dermatology-direct ed topical regimen as needed for flares - Anticipate further improvement with ongoing adalimumab therapy 3. Osteoarthritis (hands with Heberden's nodes; knees with patellofemoral crepitus) - Activity modification as needed during high-demand work periods - Acetaminophen as needed; defer NSAIDs pending GI evaluation 4. Abdominal pain, left upper quadrant radiating to back - Follow up with primary care for evaluation of gastrointestinal/h epatobiliary causes - Defer NSAIDs until evaluation is complete 5. Medication intolerance to apremilast (Otezla) - Remains discontinued due to prior significant GI side effects - Documented allergy/intoleranc e reviewed 6. Insurance change affecting biologic authorization - Office to reauthorize Humira with new insurance at start of year; patient to provide updated insurance information Patient education provided regarding expected timeline of response to adalimumab and avoiding NSAIDs until GI symptoms are clarified. Follow-up planned in approximately 4 months, with earlier contact for worsening symptoms or concerns. [id number] Not available 2025 09:20:02 Plan of Treatment Reminders Order Date Submit Date Provider Last Modified By Organization Details Last Modified Time Details Appointments Establish ed Patient 15.EST 2025 09:15A M Dr. Randy Freitas Not available Not available Not available Lab C-reactiv e protein, quantitat alistair, serum or plasma 2024 025 [facility] [place] [facility] Only [facility], [address] [place] [address], [id number], 06/26/2025 16:57:33 CMP, serum or plasma 2024 025 [facility] [place] [facility], [address] [place] [address], [id number], 06/26/2025 16:35:51 CBC w/ auto diff 2024 025 [facility] [place] [facility], [address] [place] [address], [id number], 06/26/2025 16:09:02 ccp (cyclic citrullin ated peptide) igg, serum 2024 025 [facility] - [facility], [address] [place] [address], [id number], 06/26/2025 16:57:35 Referral None recorded. Procedures None recorded. Surgeries None recorded. Imaging None recorded. Medication Orders None recorded. Patient TargetsNo targets recorded. Patient InstructionsNo instructions recorded. Reason for Referral None Reported. Results Created Date Observation Date Name Description Value Unit Range Abnormal Flag Note LastModifiedBy Organization Detail LastModifiedTime 06/26/2006/26/2025 CBC w/ auto diff CBC with differential Not Available [facility] [address] [place] [address], [id number], 06/26/2025 16:09:02 06/26/2006/26/2025 CBC w/ auto diff WBC 7.8 K/uL 4.8- 10.8 Not Available [facility] [address] [place] [address], [id number], 06/26/2025 16:09:02 06/26/2006/26/2025 CBC w/ auto diff RBC 4.91 M/uL 4.70-6 .10 Not Available [facility] [address] [place] [address], [id number], 06/26/2025 16:09:02 06/26/20 25 06/26/2025 CBC w/ auto diff HGB 15.1 g/dL 14.0-1 8.0 Not Available [facility] [address] [place] [address], [id number], 06/26/2025 16:09:02 06/26/20 25 06/26/2025 CBC w/ auto diff HCT 44.3 % 42.0-5 2.0 Not Available [facility] [address] [place] [address], [id number], 06/26/2025 16:09:02 06/26/20 25 06/26/2025 CBC w/ auto diff MCV 90.2 fL 80.0-9 4.0 Not Available [facility] [address] [place] [address], [id number], 06/26/2025 16:09:02 06/26/20 25 06/26/2025 CBC w/ auto diff MCH 30.8 pg 27.0- 31.0 Not Available [facility] [address] [place] [address], [id number], 06/26/2025 16:09:02 06/26/20 25 06/26/2025 CBC w/ auto diff MCHC 34.1 g/dL 32.0-3 6.0 Not Available [facility] [address] [place] [address], [id number], 06/26/2025 16:09:02 06/26/20 25 06/26/2025 CBC w/ auto diff RDW-SD 43.7 fL 35.1 - 46.3 Not Available [facility] [address] [place] [address], [id number], 06/26/2025 16:09:02 06/26/20 25 06/26/2025 CBC w/ auto diff plt 402 K/uL 130-40 0 high Not Available [facility] [address] [place] [address], [id number], 06/26/2025 16:09:02 06/26/20 25 06/26/2025 CBC w/ auto diff MPV 9.3 fL 7.5- 11.8 Not Available [facility] [address] [place] [address], [id number], 06/26/2025 16:09:02 06/26/20 25 06/26/2025 CBC w/ auto diff bear% 49.3 % not estab Not Available [facility] [address] [place] [address], [id number], 06/26/2025 16:09:02 06/26/2006/26/2025 CBC w/ auto diff lym% 39.2 % not estab Not Available [facility] [address] [place] [address], [id number], 06/26/2025 16:09:02 06/26/2006/26/2025 CBC w/ auto diff mono% 6.1 % not estab Not Available [facility] [address] [place] [address], [id number], 06/26/2025 16:09:02 06/26/2006/26/2025 CBC w/ auto diff eos% 3.6 % not estab Not Available [facility] [address] [place] [address], [id number], 06/26/2025 16:09:02 06/26/2006/26/2025 CBC w/ auto diff baso% 1.5 % not estab Not Available [facility] [address] [place] [address], [id number], 06/26/2025 16:09:02 06/26/2006/26/2025 CBC w/ auto diff abs bear 3.9 K/uL 1.5-7. 5 Not Available [facility] [address] [place] [address], [id number], 06/26/2025 16:09:02 06/26/20 25 06/26/2025 CBC w/ auto diff abs lym 3.1 K/uL 1.2-3. 4 Not Available [facility] [address] [place] [address], [id number], 06/26/2025 16:09:02 06/26/20 25 06/26/2025 CBC w/ auto diff abs mono 0.5 K/uL 0.1-1. 0 Not Available [facility] [address] [place] [address], [id number], 06/26/2025 16:09:02 06/26/20 25 06/26/2025 CBC w/ auto diff abs eos 0.3 K/uL 0.0-0. 7 Not Available [facility] [address] [place] [address], [id number], 06/26/2025 16:09:02 06/26/20 25 06/26/2025 CBC w/ auto diff abs baso 0.1 K/uL 0.0-0. 2 Not Available [facility] [address] [place] [address], 53921, 06/26/2025 16:09:02 06/26/20 25 06/26/2025 CBC w/ auto diff imm. gran % 0.3 % 0-5 Not Available [facility] [address] [place] [address], [id number], 06/26/2025 16:09:02 06/26/20 25 06/26/2025 CBC w/ auto diff NRBC % 0.0 % 0.0-0. 2 Not Available [facility] [address] [place] [address], 60435, 06/26/2025 16:09:02 06/26/20 25 06/26/2025 ESR (eryt hrocy te sedim entat ion rate) , blood sed rate 11 mm/HR 0 - 20 Not Available [facility] [address] [place] [address], 76904, 06/26/2025 16:23:35 06/26/2006/26/2025 CMP, serum or plasm a comp. met. panel Not Available [facility] [address] [place] [address], [id number], 06/26/2025 16:35:51 06/26/2006/26/2025 CMP, serum or plasm a sodium 139 mmol/ L 136-14 6 Not Available [facility] [address] [place] [address], [id number], 06/26/2025 16:35:51 06/26/2006/26/2025 CMP, serum or plasm a potassium 4.9 mmol/ L 3.5-5. 1 Not Available [facility] [address] [place] [address], 86070, 06/26/2025 16:35:51 06/26/2006/26/2025 CMP, serum or plasm a chloride 105 mmol/ L 98-110 Not Available [facility] [address] [place] [address], [id number], 06/26/2025 16:35:51 06/26/2006/26/2025 CMP, serum or plasm a CO2 25 mEq/L 20-32 Not Available [facility] [address] [place] [address], [id number], 06/26/2025 16:35:51 06/26/2006/26/2025 CMP, serum or plasm a anion gap 14 mmol/ L 10-22 Not Available [facility] [address] [place] [address], 02829, 06/26/2025 16:35:51 06/26/2006/26/2025 CMP, serum or plasm a glucose 87 mg/dL 70-100 Not Available [facility] [address] [place] [address], 54525, 06/26/2025 16:35:51 06/26/20 25 06/26/2025 CMP, serum or plasm a calcium 10.0 mg/dL 8.4-10 .4 Not Available [facility] [address] [place] [address], 78110, 06/26/2025 16:35:51 06/26/20 25 06/26/2025 CMP, serum or plasm a total protein 7.9 g/dL 6.4-8. 3 Not Available [facility] [address] [place] [address], 46966, 06/26/2025 16:35:51 06/26/2006/26/2025 CMP, serum or plasm a albumin 4.7 g/dL 3.5-5. 3 Not Available [facility] [address] [place] [address], 28425, 06/26/2025 16:35:51 06/26/20 25 06/26/2025 CMP, serum or plasm a ALP 86 U/L 44 - 127 Not Available [facility] [address] [place] [address], 61413, 06/26/2025 16:35:51 06/26/20 25 06/26/2025 CMP, serum or plasm a AST (SGOT) 14 U/L 10-40 Not Available [facility] [address] [place] [address], 27159, 06/26/2025 16:35:51 06/26/20 25 06/26/2025 CMP, serum or plasm a total bilirubin 0.8 mg/dL 0.2-1. 2 Not Available [facility] [address] [place] [address], 48368, 06/26/2025 16:35:51 06/26/20 25 06/26/2025 CMP, serum or plasm a ALT (SGPT) 20 U/L 8-35 Not Available [facility] [address] [place] [address], 67001, 06/26/2025 16:35:51 06/26/20 25 06/26/2025 CMP, serum or plasm a BUN 9 mg/dL 7-21 Not Available [facility] [address] [place] [address], 13189, 06/26/2025 16:35:51 06/26/20 25 06/26/2025 CMP, serum or plasm a creatinine 0.7 mg/dL 0.7-1. 3 Not Available [facility] [address] [place] [address], 44332, 06/26/2025 16:35:51 06/26/2006/26/2025 CMP, serum or plasm a CKD-epi GFR 107 eGFR was calcu lated using the 2020 CKD-E PI equat ion. (Printing Sign Machine Operator anita Kidne y Disea se has an eGFR less than 60 mL/mi n/1.7 3mm for a perio d of three month s or more. ) This calcu latio n has not been valid ated for patie nt ages <18 or >90 years old. Not Available [facility] [address] [place] [address], 30354, 06/26/2025 16:35:51 06/26/20 25 06/26/2025 HBsAg (hepa titis B surfa ce Ag), serum hepatitis B surface Ag NONREA CTIVE nonrea ctive Not Available [facility] [address] [place] [address], 84560, 06/26/2025 16:45:52 06/26/2006/26/2025 C-mejia ctive prote in, quant itati ve, serum or plasm a CRP Not Available [facility] [address] [place] [address], [id number], 06/26/2025 16:57:33 06/26/20 25 06/26/2025 C-mejia ctive prote in, quant itati ve, serum or plasm a CRP <0.5 mg/dL <0.4-0 .5 Not Available [facility] [address] [place] [address], 26705, 06/26/2025 16:57:33 06/26/2006/26/2025 ccp (cycl ic citru llina akilah pepti de) igg, serum ccp antibody, IgG <0.54 U/mL <=4.9 Not Available [facility] [address] [place] [address], [id number], 06/26/2025 16:57:35 06/26/2006/26/2025 hepat itis C Ab, serum hepatitis C Ab NONREA CTIVE nonrea ctive Not Available [facility] [address] [place] [address], [id number], 06/26/2025 17:06:44 06/26/2006/27/2025 Hepat itis B virus core Ab, qual immun oassa y, serum or plasm a hepatitis B core Ab NEGATI VE negati ve Not Available [facility] [address] [place] [address], [id number], 06/27/2025 06:13:41 06/26/2006/27/2025 rf (rheu matoi d facto r), serum rf automated Not Available [facility] [address] [place] [address], 65107, 06/27/2025 08:14:08 06/26/2006/27/2025 rf (rheu matoi d facto r), serum rf <3.5 IU/mL <3.5-1 4 Not Available [facility] [address] [place] [address], 20275, 06/27/2025 08:14:08 06/26/2006/28/2025 TB (M tuber culos is), IFN-g demetrio+ mitog en-ga mma, blood quant TB gold Not Available [facility] [address] [place] [address], 34403, 06/28/2025 14:20:19 06/26/20 25 06/28/2025 TB (M tuber culos is), IFN-g demetrio+ mitog en-ga mma, blood TB gold 0.00 IU/mL <=0.34 Not Available [facility] [address] [place] [address], 31829, 06/28/2025 14:20:19 06/26/20 25 06/28/2025 TB (M tuber culos is), IFN-g demetrio+ mitog en-ga mma, blood TB gold 2 0.00 IU/mL <=0.34 Not Available [facility] [address] [place] [address], 33413, 06/28/2025 14:20:19 06/26/20 25 06/28/2025 TB (M tuber culos is), IFN-g demetrio+ mitog en-ga mma, blood TB quant interp Negat alistair M. tuber culos is infec tion (late nt tuber culos is or tuber culos is disea se) unlik joselyn. The resul ts of Quant iFERO N TB Gold testi ng must be inter prete d in conju nctio n with other epide miolo gical , histo rical , medic al, and diagn ostic findi ngs. Not Available [facility] [address] [place] [address], [id number], 06/28/2025 14:20:19 06/26/2007/03/2025 hla-B 27, blood hla-B27, DNA typing Not Available [facility] [address] [place] [address], [id number], 07/03/2025 18:10:53 06/26/2007/03/2025 hla-B 27, blood hla-B27 NEGATI VE HLA-B *27 Negat alistair B27 allel e inter preta tion for all loci based on IMGT/ HLA datab ase versi on 3 This test was devel oped and its perfo rmanc e gunjan cteri stics deter mined by [facility]. It has not been clear ed or appro yoni by the Food and Drug Admin istra tion. The FDA has deter mined that such clear ance or appro michel is not neccristobal blum. HLA Lab CLIA ID Naveed deleon [id number] HISTO JACK TIBIL ITY SECTI ON DIREC TOR: Morris deleon, PhD, D(ABCaden WHITESIDE), F(ACH I) This test was perfo rmed using Polym erase Chain React ion (PCR) and Seque nce Speci fic Oligo nucle otide Probe s (SSOP ) techn ique. Seque nce Based Typin g (SBT) may be used as a suppl ement al metho d when neces viktoria. If you have quest ions, pleas e call [facility] custo dilshad servi ce at [phone] or email at [facility] @[email or web address] or.[email or web address] om. Not Available [facility] [address], [address], 07/03/2025 18:10:53 06/26/20 25 06/26/2025 XR, knee, 4 or more view [address] [address] Teleph one [phone] Name: Juan Carlos Ibarra [id number] am Date: 2024 Age: 59Phys ician: Nithin evans MD, Arabella y : 1964Ex aminat ion: XR KNEE 4 VIEWS LEFT EXAMIN ATION: XR KNEE 4 VIEWS LEFT HISTOR Y: Bilate ral knee pain onset 5 years ago, pain is worse on the right COMPAR FÉLIX: None TECHNI QUE: Left knee 4 views FINDIN GS: The bone minera lizati on is normal . Mild tricom partme ntal osteoa rthrit is in left knee. Trace knee joint effusi on. No acute fractu re, sublux ation, or disloc ation in the left knee. The patell a is well situat ed within the trochl ear groove on the sunris e view. IMPRES RUBI: 1. Mild tricom partme ntal osteoa rthrit is in the left knee. 2. No fractu re, sublux ation, or disloc ation in the left knee. Electr onical ly signed in Kwan cribe by: Jose Cazares MD on: 11:20 AM cc: Page PAGE 1 of [facility] 1 tlenardo [facility] [address] [place], [address], 07/02/2025 15:48:47 06/26/20 25 06/26/2025 XR, knee, 4 or more view [address] [address] Tele one Name: Juan Carlos Ibarra [id number] am Date: 2024 Age: 59Phys ician: Nithin evans MD, [facility] y : 1964Ex aminat ion: XR KNEE 4 VIEWS RIGHT EXAMIN ATION: XR KNEE 4 VIEWS RIGHT HISTOR Y: Bilate ral knee pain onset 5 years ago. No injury . Pain is worse in right knee. COMPAR FÉLIX: None TECHNI QUE: Right knee 4 views FINDIN GS: The bone minera lizati on is normal . Mild tricom partme ntal osteoa rthrit is in the right knee. There is a trace knee joint effusi on. No acute fractu re, sublux ation, or disloc ation in the right knee. The patell a is well situat ed within the trochl ear groove on the sunris e view. IMPRES RUBI: 1. Mild tricom partme ntal osteoa rthrit is in the right knee. 2. No fractu re, sublux ation, or disloc ation in the right knee. 3. Trace right knee joint effusi on. Electr onical ly signed in Kwan cribe by: Jose Cazares MD on: 11:22 AM cc: Page PAGE 1 of [facility] 1 tlenardo [facility] [address] [place], [address], 07/02/2025 15:48:47 06/26/2006/26/2025 XR, hand [facility] [address] [address] Teleph one [phone] Name: Juan Carlos Ibarra [id number] am Date: 2024 Age: 59Phys ician: Nithin evans MD, Timoth y : 1964Ex aminat ion: XR HANDS BILATE RAL PA EXAMIN ATION: XR HANDS BILATE RAL PA HISTOR Y: Right hand pain onset 5 years ago. No injury . COMPAR FÉLIX: None TECHNI QUE: Bilate ral hands PA view(s ) FINDIN GS: The bone minera lizati on is normal . Right hand: There is no acute fractu re or disloc ation. There is no discre te osseou s erosio n. Mild degene rative change at the right first CMC joint. Mild degene rative change at the right interp halang eal joints . Left hand: There is no acute fractu re or disloc ation. There is no discre te osseou s erosio n. Modera te degene rative change at the left first CMC joint. Mild to modera te degene rative change at the left interp halang eal joints . IMPRES RUBI: No acute osseou s findin gs or bony erosio ns. Degene rative change in the hands as descri bed above, left slight ly greate r than right. Electr onical ly signed in Kwan cribe by: Jose Cazares MD on: 11:24 AM cc: Page PAGE 1 of [facility] 1 tlenardo [facility] [address] [place], [address], 07/02/2025 15:48:47 06/26/2006/26/2025 XR, shoul erika, 2 or more view [facility] [address] [address] Teleph one [phone] Name: Juan Carlos Ibarra [id number] am Date: 2024 Age: 59Phys ician: Nithin evans MD, Timoth y : 1964Ex aminat ion: XR SHOULD ER COMPLE TE RIGHT EXAMIN ATION: XR SHOULD ER COMPLE TE RIGHT HISTOR Y: Right should er pain onset 8 months ago COMPAR FÉLIX: None TECHNI QUE: Right should er 4 views FINDIN GS: The bone minera lizati on is decrea sed. Modera te degene rative change in the right glenoh umeral and acromi oclavi cular joints . No acute fractu re identi fied. There is slight inferi or sublux ation of the laura l head relati ve to the glenoi d. Modera te change in the spine as visual ized. The soft tissue s appear normal . IMPRES RUBI: 1. Modera te degene rative change in the right glenoh umeral and acromi oclavi cular joints . 2. No fractu re in the right should er. 3. Slight inferi or sublux ation of the laura l head relati ve to the glenoi d. Electr onical ly signed in Kwan cribe by: Jose Cazares MD on: 11:26 AM cc: Page PAGE 1 of [facility] 1 grayson [facility] [address], [address], 07/02/2025 15:49:21 Result Notes Documentation Provider Name and Address Organization Details Recorded Time Xr, Knee, 4 Or More View : [address] [address] Name: Juan Carlos Ibarra Date: 06/26/2025 Age: 59Physician: MD Freitas Timothy : 1965Examination: XR KNEE 4 VIEWS LEFT EXAMINATION: XR KNEE 4 VIEWS LEFT HISTORY: Bilateral knee pain onset 5 years ago, pain is worse on the right COMPARISON: None TECHNIQUE: Left knee 4 views FINDINGS: The bone mineralization is normal. Mild tricompartmental osteoarthritis in left knee. Trace knee joint effusion. No acute fracture, subluxation, or dislocation in the left knee. The patella is well situated within the trochlear groove on the sunrise view. IMPRESSION: 1. Mild tricompartmental osteoarthritis in the left knee. 2. No fracture, subluxation, or dislocation in the left knee. Electronically signed in Zarangacribe by: Jose Cazares MD on:06/26/2025 11:20 AM cc: Page PAGE 1 of [facility] 1 Randy Freitas MD [address] [place] [address], [id number], [facility] 07/02/2025 15:48:48 Xr, Knee, 4 Or More View : [address] [address] Name: Juan Carlos Ibarra Date: 06/26/2025 Age: 59Physician: MD Freitas Timothy : 1965Examination: XR KNEE 4 VIEWS RIGHT EXAMINATION: XR KNEE 4 VIEWS RIGHT HISTORY: Bilateral knee pain onset 5 years ago. No injury. Pain is worse in right knee. COMPARISON: None TECHNIQUE: Right knee 4 views FINDINGS: The bone mineralization is normal. Mild tricompartmental osteoarthritis in the right knee. There is a trace knee joint effusion. No acute fracture, subluxation, or dislocation in the right knee. The patella is well situated within the trochlear groove on the sunrise view. IMPRESSION: 1. Mild tricompartmental osteoarthritis in the right knee. 2. No fracture, subluxation, or dislocation in the right knee. 3. Trace right knee joint effusion. Electronically signed in Zarangacribe by: Jose Cazares MD on:06/26/2025 11:22 AM cc: Page PAGE 1 of [facility] 1 Randy Freitas MD [address] [place] [address], [id number], [facility] 07/02/2025 15:48:47 Xr, Hand : [address] [address] Name: Juan Carlos Ibarra Date: 06/26/2025 Age: 59Physician: MD Freitas Timothy Dob: 1965Examination: XR HANDS BILATERAL PA EXAMINATION: XR HANDS BILATERAL PA HISTORY: Right hand pain onset 5 years ago. No injury. COMPARISON: None TECHNIQUE: Bilateral hands PA view(s) FINDINGS: The bone mineralization is normal. Right hand: There is no acute fracture or dislocation. There is no discrete osseous erosion. Mild degenerative change at the right first CMC joint. Mild degenerative change at the right interphalangeal joints. Left hand: There is no acute fracture or dislocation. There is no discrete osseous erosion. Moderate degenerative change at the left first CMC joint. Mild to moderate degenerative change at the left interphalangeal joints. IMPRESSION: No acute osseous findings or bony erosions. Degenerative change in the hands as described above, left slightly greater than right. Electronically signed in PowerScribe by: Jose Cazares MD on:06/26/2025 11:24 AM cc: Page PAGE 1 of [facility] 1 Randy Freitas MD [address] [place], [place] [id number], [id number] 07/02/2025 15:48:47 Xr, Shoulder, 2 Or More View : [place] [address] Name: Juan Carlos Ibarra Date: 06/26/2025 Age: 59Physician: MD Freitas Timothy Dob: 1965Examination: XR SHOULDER COMPLETE RIGHT EXAMINATION: XR SHOULDER COMPLETE RIGHT HISTORY: Right shoulder pain onset 8 months ago COMPARISON: None TECHNIQUE: Right shoulder 4 views FINDINGS: The bone mineralization is decreased. Moderate degenerative change in the right glenohumeral and acromioclavicular joints. No acute fracture identified. There is slight inferior subluxation of the humeral head relative to the glenoid. Moderate change in the spine as visualized. The soft tissues appear normal. IMPRESSION: 1. Moderate degenerative change in the right glenohumeral and acromioclavicular joints. 2. No fracture in the right shoulder. 3. Slight inferior subluxation of the humeral head relative to the glenoid. Electronically signed in PowerScribe by: Jose Cazares MD on:06/26/2025 11:26 AM cc: Page PAGE 1 of NUMPAGES 1 Randy Freitas MD [facility], [phone], [facility] 07/02/2025 15:49:21 Problems Name Problem SNOMED Code Status Onset Date Resolution Date Notes Provider Name and Address Organization Details Recorded Time Primary gonarthros is, bilateral 167307886 Active 2024 Not Available [facility] 22:10:58 Psoriatic arthritis 016818289 Active 2024 Not Available [facility] 22:10:58 Pain of bilateral knee regions 5166216243663 02 Active 2024 Not Available [facility] 22:10:58 Pain of bilateral hands 2098348959902 9109 Active 2024 Not Available [facility] 5 22:10:58 Pain of hip region 58998894 Active 2024 Not Available [facility] 22:10:58 Pain of bilateral shoulder regions Active 2024 Not Available [facility] 22:10:58 Psoriasis 3804572 Active 2024 Not Available [facility] 22:11:07 Problem Notes None recorded. Medical Equipment None Reported. Allergies Allergen ID Allergen Name Allergen Category Reaction Reaction Severity Criticality Documentation Date Start Date Code Code System Note Provider Name and Address Organization Details Recorded Time 4216363 Otezla medicatio n headache Not available Not available 08/02/2025 02705 33 RxNorm [facility] 5 09:06:59 Medications Name Sig Start Date Stop Date Status Note LastModified by Organization Details LastModified Time fluconazo le 100 mg tablet TAKE 1 TABLET BY MOUTH EVERY DAY active Not Available Not Available No t Available cefuroxim e axetil 250 mg tablet TAKE 1 TABLET BY MOUTH EVERY 12 HOURS 04/09 completed Not Available Not Available Not Available cetirizin e 10 mg tablet TAKE 1 TABLET BY MOUTH EVERY DAY active Not Available Not Available No t Available meloxicam 15 mg tablet TAKE 1 TABLET BY MOUTH DAILYTak e with food 09/04 completed Not Available Not Available Not Available betametha sone, augmented 0.05 % topical cream APPLY A THIN LAYER TO THE AFFECTED AREA(S) BY TOPICAL ROUTE ONCE DAILY DO NOT EXCEED 50 GRAMS PER WK 09/04 completed Not Available Not Available Not Available sertralin e 100 mg tablet TAKE 1 TABLET BY MOUTH EVERY DAY active Not Available Not Available No t Available prednison e 5 mg tablet PLEASE SEE ATTACHED FOR DETAILED DIRECTIO NS 06/26 completed Not Available Not Available Not Available methotrex ate sodium 2.5 mg tablet TAKE 4 TABLETS (10 MG) BY ORAL ROUTE ONCE WEEKLY 06/26 completed Not Available Not Available Not Available clotrimaz ole-betam ethasone 1 %-0.05 % topical cream PLEASE SEE ATTACHED FOR DETAILED DIRECTIO NS active Not Available Not Available No t Available metronida zole 0.75 % topical cream APPLY A THIN LAYER TOPICALL Y TO THE AFFECTED AREA(S) 2 TIMES PER DAY IN THE MORNING AND EVENING 06/26 completed Not Available Not Available Not Available methimazo le 5 mg tablet TAKE 1 TABLET BY MOUTH EVERY DAY 06/26 completed Not Available Not Available Not Available folic acid 1 mg tablet TAKE 1 TABLET (1 MG) BY ORAL ROUTE ONCE DAILY EXCEPT ON DAY YOU TAKE METHOTRE XATE 06/26 completed Not Available Not Available Not Available hydrocort isone 2.5 % topical cream APPLY TWICE DAILY NEEDED TO RASH MIX WITH KETOCONA ZOLE CREAM active Not Available Not Available No t Available metoprolo l succinate ER 25 mg tablet,ex tended release 24 hr TAKE 1 TABLET BY MOUTH EVERY DAY 06/26 completed Not Available Not Available Not Available ketoconaz ole 2 % topical cream APPLY TWICE DAILY TO RASH ON FACE NEEDED MIX WITH HYDROCOR TISONE CREAM 2024 active Not Available Not Available Not Avai lable fluticaso ne propionat e 50 mcg/actua tion nasal spray,siddhartha pension SPRAY 2 SPRAYS INTO EACH NOSTRIL EVERY DAY active Not Available Not Available No t Available Otezla Starter 10 mg (4)-20 mg (4)-30 mg(47) tablets in a dose pack Take as directed 08/02 completed headache , diarrhea Not Available Not Available Not Available aspirin 81 mg capsule Take 1 capsule every day by oral route. active Not Available Not Available No t Available adalimuma b-adaz 40 mg/0.4 mL subcutane ous pen injector Inject 0.4 mL every 2 weeks by subcutan eous route. active Not Available Not Available No t Available Vitals Date Recorded Body height Body mass index (BMI) Body weight Heart rate Oxygen saturation Systolic And Diastolic Provider Name and Address Organization Details Last Updated DateTime 172.72 cm 30.7 kg/m2 72891.6 6 g 73 /min 97 % 130/68 mm[Hg] Triny Bo [facility] 5 09:58:41 Date Recorded Body height Heart rate Oxygen saturation Pain severity - 0-10 verbal numeric rating [Score] - Reported Systolic And Diastolic Provider Name and Address Organization Details Last Updated DateTime 2025 172.72 cm 67 /min 99 % 0 130/74 mm[Hg] Peewee Cyr [facility] 09:03:57 Social History Question Answer Notes LastModified by Organizat ion Details LastModified Time Tobacco Smoking Status Former Smoker Triny Bo [facility] 06/26/2025 10:01:46 When Did You Quit Smoking? 1-5yearssinc elastcigaret te [email or web address] Information not available 06/26/2025 What Was The Date Of Your Most Recent Tobacco Screening? 06/26/2025 [email or web address] Information not available 06/26/2025 How Many Years Have You Smoked Tobacco? 35 [email or web address] Information not available 06/26/2025 Sex: Unknown Functional Status None recorded. Mental Status None recorded. Family History Nothing Reported. Medical History No medical history recorded. Immunizations Vaccine Type Date Status Note Provider Nam e and Address Organization Details Recorded Time Hep A, adult 3 completed Not Available [facility] 2025 08:48:40 Pneumococcal conjugate PCV 13 1 completed Not Available [facility] 2025 08:48:40 zoster recombinant 1 completed Not Available [facility] 2025 08:48:40 COVID-19, mRNA, LNP-S, PF, 30 mcg/0.3 mL dose 1 completed Not Available [facility] 2025 08:48:40 COVID-19, mRNA, LNP-S, PF, 30 mcg/0.3 mL dose 1 completed Not Available [facility] 2025 08:48:40 Influenza, split virus, quadrivalent, PF 1 completed Not Available [facility] 2025 08:48:40 zoster recombinant 2 completed Not Available [facility] 2025 08:48:40 COVID-19, mRNA, LNP-S, PF, 30 mcg/0.3 mL dose, vicki-sucrose 2 completed Not Available [facility] 2025 08:48:40 Tdap 3 completed Not Available [facility] 2025 08:48:40 Past Encounters Encounter ID Performer Location Encounter Start Date Encounter Closed Date Diagnosis/Indication Diagnosis SNOMED-CT Code Diagnosis ICD10 Code Diagnosis IMO Codes Diagnosis Note [id number] Randy Freitas MD [facility] [address] [place] [address] 06/26/2025 09:38:28 06/27/2025 07:08:58 Primary gonarthrosis, bilateral 698223416 M17.0 4071122 Psoriatic arthritis 1563 46877 L40.59 0065169 [id number] Randy Freitas MD [address] [facility] [address] [place] [address] 2025 08:45:51 09/05/2025 07:16:17 Psoriatic arthritis 368327603 L40.50 L40.59 71654 [id number] Primary go narthrosis, bilateral 359198839 M17.0 9231050 Psoriasis 4881794 L40.9 07655 Health Concerns Section Related Observation LastModified by Organization Detai ls LastModified Time None Recorded Concern Status LastModified by Organization Details LastModified Time None Recorded Advance Directives Directive None Recorded Payers Insurance Date Sequence Insurance Name Policy Number Policy Auguste Covered Member ID Auguste Member ID Guarantor Name 09/05/2025 1 [employer] ([facility] [id number] Juan Carlos Ibarra [id number] Juan Carlos Ibarra Notes Date Note Type Note Provider Name and Address Organization Details Recorded Time 06/26/2025 text/html Juan Carlos Ibarra is a 59-year-old man, former smoker, referred by his PCP (Dr. Mike Simmons) for rheumatologic evaluation of polyarthralgia with suspected psoriatic arthritis. He has longstanding psoriasis with recent biopsy-confirmed lesions (legs and buttock; facial involvement has recently improved with topical therapy per dermatology). Over the past few years he has developed progressive joint pain and stiffness, primarily in the knees, thumbs (right > left), and shoulders (right > left), with additional hip stiffness and groin pain (right worse). Morning stiffness lasts about an hour, with marked difficulty initiating movement after sitting (inactivity gelling). Pain improves somewhat with early activity but worsens by midday and toward the end of his workdays (owns/works in a bakery; long hours on hard floors historically). He reports difficulty bending the right knee, trouble tying shoes, inability to kneel, and reduced endurance compared to prior years. He notes throbbing pains at rest at times, requiring more frequent acetaminophen use despite preferring to avoid medications. He reports a PET scan approximately two years ago (performed during evaluation of a lung concern) that incidentally showed bad arthritis in shoulders and knees. He received a right knee corticosteroid injection via PCP, which was very painful and provided no relief. Dermatology recently discussed systemic options including apremilast (Otezla) and biologics (e.g., adalimumab, etanercept, secukinumab, ixekizumab). He previously took methotrexate weekly with folic acid per PCP but derived no benefit and discontinued it. He has lost about 50 lbs on a GLP-1 medication and aims to lose 20-25 more; despite weight loss, joint symptoms persist. He is a former smoker (quit months ago) with mild emphysema but no current dyspnea or cough. He denies uveitis/iritis and oral/nasal ulcerations. He has chronic left ear issues due to prior tympanic membrane injury with recurrent otitis if exposed to water. He reports positional vertigo. No history of IBD, GI bleeding, kidney stones, seizures, or thromboembolic disease. Dysthymic/anxiety symptoms are controlled on sertraline. Prior thyrotoxicosis was managed by endocrinology; methimazole noted in medication list. Randy Freitas MD [address] [place] [address], [phone], [facility] 06/26/2025 11:19:05 2025 text/html Juan Carlos Ibarra is a 60-year-old gentleman with a history of psoriatic arthritis, psoriasis, and osteoarthritis who presents for follow-up. He recently transitioned to adalimumab (Humira) and has taken two doses so far without adverse effects. Prior to initiating Humira, he experienced significant gastrointestinal intolerance while on apremilast (Otezla) and discontinued it on his own; he also stopped meloxicam at the same time. He briefly restarted meloxicam while awaiting Humira but has been off meloxicam for approximately two weeks. Since starting Humira, he notes functional improvement, including the ability to get down to and up from the floor, which he had not been able to do for a long time. He reports intermittent right thumb pain and swelling, with episodes of throbbing while driving; other hand symptoms are overall improved compared to prior. Morning stiffness is minimal on typical days, though he has recently had increased musculoskeletal fatigue and soreness during a period of prolonged work hours at his bakery. Skin disease has been improving with fading plaques; facial involvement previously treated with a dermatology-prescribed two-cream topical regimen cleared well within two days. He has a persistent lesion on the left posterior auricular area that was biopsied previously and was told may persist as a scar; he has limited plaque areas on the left lateral abdomen and left buttock. He reports ongoing upper left abdominal discomfort radiating to the back and plans to follow up with his primary care provider to evaluate a possible gastrointestinal/hepat obiliary etiology. Specific characteristics, triggers, and associated GI symptoms were not fully detailed today. Randy Freitas MD [address] [place] [address], [phone], [facility] 2025 09:21:36
--- OUTSIDE RECORDS SUMMARY | 2025-09-06 10:40 | XMS_ITS | Continuity of Care Document ---
Author Organization [facility], [address] [facility] ([place]) Address [address] [address] Care Team Providers Care Medical Office Administrator Name Role Phone PATRICK RIOJAS Primary Care Provider [phone] RANDY FREITAS Marine Specialist Assessment Encounter Date Assessment Date Assessment LastModified [...] Total time spent: 60 minutes (Tracked by [employer]) grayson Not available 06/26/2025 11:16:08 Plan of Treatment Reminders Order Date Submit Date Provider Last Modified By Organization Details Last Modified Time Details Appointments Establish ed Patient 15.EST 2025 09:15A M Dr. Randy Freitas Not available Not available Not available Lab C-reactiv e protein, quantitat alistair, serum or plasma 2024 025 REIN[facility], [address] [place] [address], [id number], 06/26/2025 16:57:33 CMP, serum or plasma 2024 025 REINALDO [facility], [address] [place] [address], [id number], 06/26/2025 16:35:51 CBC w/ auto diff 2024 025 REINALDO [facility], [address] [place] [address], [id number], 06/26/2025 16:09:02 ccp (cyclic citrullin ated peptide) igg, serum 2024 025 REINALDO [facility], [address] [place] [address], [id number], 06/26/2025 16:57:35 Referral None recorded. Procedures None recorded. Surgeries None recorded. Imaging None recorded. Medication Orders None recorded. Patient TargetsNo targets recorded. Patient InstructionsNo instructions recorded. Reason for Referral None Reported. Results Created Date Observation Date Name Description Value Unit Range Abnormal Flag Note LastModifiedBy Organization Detail LastModifiedTime 06/26/2006/26/2025 CBC w/ auto diff CBC with differential Not Available [facility] [address] [place] [address], [id number], 06/26/2025 16:09:02 06/26/2006/26/2025 CBC w/ auto diff WBC 7.8 K/uL 4.8- 10.8 Not Available [facility] [address] [place] [address], [id number], 06/26/2025 16:09:02 06/26/20 25 06/26/2025 CBC w/ auto diff RBC 4.91 M/uL 4.70-6 .10 Not Available [facility] [address] [place] [address], [id number], 06/26/2025 16:09:02 06/26/20 25 06/26/2025 CBC w/ auto diff HGB 15.1 g/dL 14.0-1 8.0 Not Available [facility] [address] [place] [address], 60309, 06/26/2025 16:09:02 06/26/20 25 06/26/2025 CBC w/ auto diff HCT 44.3 % 42.0-5 2.0 Not Available [facility] [address] [place] [address], 80781, 06/26/2025 16:09:02 06/26/20 25 06/26/2025 CBC w/ auto diff MCV 90.2 fL 80.0-9 4.0 Not Available [facility] [address] [place] [address], [id number], 06/26/2025 16:09:02 06/26/2006/26/2025 CBC w/ auto diff MCH 30.8 pg 27.0- 31.0 Not Available [facility] [address] [place] [address], [id number], 06/26/2025 16:09:02 06/26/20 25 06/26/2025 CBC w/ auto diff MCHC 34.1 g/dL 32.0-3 6.0 Not Available [facility] [address] [place] [address], 44373, 06/26/2025 16:09:02 06/26/20 25 06/26/2025 CBC w/ auto diff RDW-SD 43.7 fL 35.1 - 46.3 Not Available [facility] [address] [place] [address], 55930, 06/26/2025 16:09:02 06/26/20 25 06/26/2025 CBC w/ auto diff plt 402 K/uL 130-40 0 high Not Available [facility] [address] [place] [address], 08712, 06/26/2025 16:09:02 06/26/20 25 06/26/2025 CBC w/ auto diff MPV 9.3 fL 7.5- 11.8 Not Available [facility] [address] [place] [address], 50798, 06/26/2025 16:09:02 06/26/20 25 06/26/2025 CBC w/ auto diff bear% 49.3 % not estab Not Available [facility] [address] [place] [address], 87985, 06/26/2025 16:09:02 06/26/20 25 06/26/2025 CBC w/ auto diff lym% 39.2 % not estab Not Available [facility] [address] [place] [address], 61033, 06/26/2025 16:09:02 06/26/20 25 06/26/2025 CBC w/ auto diff mono% 6.1 % not estab Not Available [facility] [address] [place] [address], 79727, 06/26/2025 16:09:02 06/26/20 25 06/26/2025 CBC w/ auto diff eos% 3.6 % not estab Not Available [facility] [address] [place] [address], [id number], 06/26/2025 16:09:02 06/26/2006/26/2025 CBC w/ auto diff baso% 1.5 % not estab Not Available [facility] [address] [place] [address], [id number], 06/26/2025 16:09:02 06/26/20 25 06/26/2025 CBC w/ auto diff abs bear 3.9 K/uL 1.5-7. 5 Not Available [facility] [address] [place] [address], 81254, 06/26/2025 16:09:02 06/26/2006/26/2025 CBC w/ auto diff abs lym 3.1 K/uL 1.2-3. 4 Not Available [facility] [address] [place] [address], 91422, 06/26/2025 16:09:02 06/26/20 25 06/26/2025 CBC w/ auto diff abs mono 0.5 K/uL 0.1-1. 0 Not Available [facility] [address] [place] [address], 99068, 06/26/2025 16:09:02 06/26/20 25 06/26/2025 CBC w/ auto diff abs eos 0.3 K/uL 0.0-0. 7 Not Available [facility] [address] [place] [address], 05417, 06/26/2025 16:09:02 06/26/20 25 06/26/2025 CBC w/ auto diff abs baso 0.1 K/uL 0.0-0. 2 Not Available [facility] [address] [place] [address], 05347, 06/26/2025 16:09:02 06/26/20 25 06/26/2025 CBC w/ auto diff imm. gran % 0.3 % 0-5 Not Available [facility] [address] [place] [address], 55099, 06/26/2025 16:09:02 06/26/20 25 06/26/2025 CBC w/ auto diff NRBC % 0.0 % 0.0-0. 2 Not Available [facility] [address] [place] [address], 86601, 06/26/2025 16:09:02 06/26/20 25 06/26/2025 ESR (eryt hrocy te sedim entat ion rate) , blood sed rate 11 mm/HR 0 - 20 Not Available [facility] [address] [place] [address], 11065, 06/26/2025 16:23:35 06/26/2006/26/2025 CMP, serum or plasm a comp. met. panel Not Available [facility] [address] [place] [address], 34221, 06/26/2025 16:35:51 06/26/2006/26/2025 CMP, serum or plasm a sodium 139 mmol/ L 136-14 6 Not Available [facility] [address] [place] [address], 16853, 06/26/2025 16:35:51 06/26/20 25 06/26/2025 CMP, serum or plasm a potassium 4.9 mmol/ L 3.5-5. 1 Not Available [facility] [address] [place] [address], 31654, 06/26/2025 16:35:51 06/26/2006/26/2025 CMP, serum or plasm a chloride 105 mmol/ L 98-110 Not Available [facility] [address] [place] [address], 83118, 06/26/2025 16:35:51 06/26/20 25 06/26/2025 CMP, serum or plasm a CO2 25 mEq/L 20-32 Not Available [facility] [address] [place] [address], 76999, 06/26/2025 16:35:51 06/26/2006/26/2025 CMP, serum or plasm a anion gap 14 mmol/ L 10-22 Not Available [facility] [address] [place] [address], 10471, 06/26/2025 16:35:51 06/26/2006/26/2025 CMP, serum or plasm a glucose 87 mg/dL 70-100 Not Available [facility] [address] [place] [address], 52881, 06/26/2025 16:35:51 06/26/2006/26/2025 CMP, serum or plasm a calcium 10.0 mg/dL 8.4-10 .4 Not Available [facility] [address] [place] [address], 68010, 06/26/2025 16:35:51 06/26/2006/26/2025 CMP, serum or plasm a total protein 7.9 g/dL 6.4-8. 3 Not Available [facility] [address] [place] [address], 44866, 06/26/2025 16:35:51 06/26/2006/26/2025 CMP, serum or plasm a albumin 4.7 g/dL 3.5-5. 3 Not Available [facility] [address] [place] [address], 17074, 06/26/2025 16:35:51 06/26/2006/26/2025 CMP, serum or plasm a ALP 86 U/L 44 - 127 Not Available [facility] [address] [place] [address], 25809, 06/26/2025 16:35:51 10/20/20 25 06/26/2025 CMP, serum or plasm a AST (SGOT) 14 U/L 10-40 Not Available [facility] [address] [place] [address], 32914, 06/26/2025 16:35:51 06/26/20 25 06/26/2025 CMP, serum or plasm a total bilirubin 0.8 mg/dL 0.2-1. 2 Not Available [facility] [address] [place] [address], 57464, 06/26/2025 16:35:51 06/26/20 25 06/26/2025 CMP, serum or plasm a ALT (SGPT) 20 U/L 8-35 Not Available [facility] [address] [place] [address], 44672, 06/26/2025 16:35:51 06/26/20 25 06/26/2025 CMP, serum or plasm a BUN 9 mg/dL 7-21 Not Available [facility] [address] [place] [address], 08593, 06/26/2025 16:35:51 06/26/20 25 06/26/2025 CMP, serum or plasm a creatinine 0.7 mg/dL 0.7-1. 3 Not Available [facility] [address] [place] [address], 60085, 06/26/2025 16:35:51 06/26/20 25 06/26/2025 CMP, serum or plasm a CKD-epi GFR 107 eGFR was calcu lated using the 2020 CKD-E PI equat ion. (Career Portals Teacher anita Kidne y Disea se has an eGFR less than 60 mL/mi n/1.7 3mm for a perio d of three month s or more. ) This calcu latio n has not been valid ated for patie nt ages <18 or >90 years old. Not Available [facility] [address] [place] [address], 96742, 06/26/2025 16:35:51 10/2006/26/2025 HBsAg (hepa titis B surfa ce Ag), serum hepatitis B surface Ag NONREA CTIVE nonrea ctive Not Available [facility] [address] [place] [address], 48860, 06/26/2025 16:45:52 06/26/20 25 06/26/2025 C-mejia ctive prote in, quant itati ve, serum or plasm a CRP Not Available [facility] [address] [place] [address], 42402, 06/26/2025 16:57:33 06/26/2006/26/2025 C-mejia ctive prote in, quant itati ve, serum or plasm a CRP <0.5 mg/dL <0.4-0 .5 Not Available [facility] [address] [place] [address], 06186, 06/26/2025 16:57:33 06/26/2006/26/2025 ccp (cycl ic citru llina akilah pepti de) igg, serum ccp antibody, IgG <0.54 U/mL <=4.9 Not Available [facility] [address] [place] [address], 65541, 06/26/2025 16:57:35 06/26/20 25 06/26/2025 hepat itis C Ab, serum hepatitis C Ab NONREA CTIVE nonrea ctive Not Available [facility] [address] [place] [address], 06709, 06/26/2025 17:06:44 06/26/2006/27/2025 Hepat itis B virus core Ab, qual immun oassa y, serum or plasm a hepatitis B core Ab NEGATI VE negati ve Not Available [facility] [address] [place] [address], 65766, 06/27/2025 06:13:41 06/26/2006/27/2025 rf (rheu matoi d facto r), serum rf automated Not Available [facility] [address] [place] [address], 95258, 06/27/2025 08:14:08 06/26/2006/27/2025 rf (rheu matoi d facto r), serum rf <3.5 IU/mL <3.5-1 4 Not Available [facility] [address] [place] [address], 74156, 06/27/2025 08:14:08 06/26/20 25 06/28/2025 TB (M tuber culos is), IFN-g demetrio+ mitog en-ga mma, blood quant TB gold Not Available [facility] [address] [place] [address], 69830, 06/28/2025 14:20:19 06/26/20 25 06/28/2025 TB (M tuber culos is), IFN-g demetrio+ mitog en-ga mma, blood TB gold 0.00 IU/mL <=0.34 Not Available [facility] [address] [place] [address], 62838, 06/28/2025 14:20:19 06/26/20 25 06/28/2025 TB (M tuber culos is), IFN-g demetrio+ mitog en-ga mma, blood TB gold 2 0.00 IU/mL <=0.34 Not Available [facility] [address] [place] [address], 95763, 06/28/2025 14:20:19 06/26/20 25 06/28/2025 TB (M [...] and diagn ostic findi ngs. Not Available [facility] [address] [place] [address], 17959, 06/28/2025 14:20:19 06/26/2007/03/2025 hla-B 27, blood hla-B27, DNA typing Not Available [facility] [address], [address], 07/03/2025 18:10:53 06/26/2007/03/2025 hla-B 27, blood hla-B27 NEGATI VE HLA-B *27 Negat alistair B27 allel e inter preta tion for all loci based on IMGT/ HLA datab ase versi on This test was devel oped and its perfo rmanc e gunjan cteri stics deter mined by [facility]. It has not been clear ed or appro yoni by the Food and Drug Admin istra tion. The FDA has deter mined that such clear ance or appro imchel is not neces viktoria. HLA Lab CLIA ID Numbe r [id number] HISTO JACK TIBIL ITY SECTI ON DIREC TOR: Morris deleon, PhD, D([facility]), F([facility] I) This test was perfo rmed using Polym erase Chain React ion (PCR) and Seque nce Speci fic Oligo nucle otide Probe s (SSOP ) techn ique. Seque nce Based Typin g (SBT) may be used as a suppl ement al metho d when neccristobal blum. If you have quest ions, pleas e call HLA custo dilshad servi ce at [phone] or email at [email or web address] or.c om. Not Available [facility] [address] [place] [address], 24628, 07/03/2025 18:10:53 06/26/2006/26/2025 XR, knee, 4 or more view [address] [address] Teleph one [phone] Name: Juan Carlos Ibarra [id number] am Date: 2024 Age: 59Phys ician: Nithin evans MD, Arabella paz : 1964Ex aminat ion: XR KNEE 4 [...] 11:20 AM cc: Page PAGE 1 of [facility], [address], 07/02/2025 15:48:47 06/26/20 25 06/26/2025 XR, knee, 4 or more view [address] [address] Tele one [phone] Name: Juan Carlos Ibarra [id number] am Date: 2024 Age: 59Phys ician: Nithin evans MD, Arabella paz : 1964Ex aminat ion: XR KNEE 4 [...] ation in the right knee. The patell marie is well situat ed within the trochl [...] 11:22 AM cc: Page PAGE 1 of [facility] 1 tlenardo [facility] [address] [place] [address], 75[address], 07/02/2025 15:48:47 06/26/20 25 06/26/2025 XR, hand [address] [address] Teleph one [phone] Name: Juan Carlos Ibarra [id number] am Date: 2024 Age: 59Phys ician: Nithin evans MD, [facility] y : 1964Ex aminat ion: XR HANDS [...] 11:24 AM cc: Page PAGE 1 of [facility] 1 tlenardo [facility] [address] [place], [address], 07/02/2025 15:48:47 06/26/20 25 06/26/2025 XR, shoul erika, 2 [place] [address] Teleph one Name: Juan Carlos Ibarra [id number] am [...] 11:26 AM cc: Page PAGE 1 of [facility] 1 tlenardo [facility] [address] [place], [address], 07/02/2025 15:49:21 Result Notes Documentation Provider Name and Address Organization Details Recorded Time Xr, Knee, 4 Or More View : [place] [id number] Name: Juan Carlos Ibarra Date: 06/26/2025 Age: [...] in the left knee. Electronically signed in PowerScribe by: Jose Cazares MD on:06/26/2025 11:20 AM cc: Page PAGE 1 of [facility] 1 Randy Freitas MD [address] [place] [address], [phone], [facility] 07/02/2025 15:48:48 Xr, Knee, 4 Or More View : [place] [address] Name: Juan Carlos Ibarra Date: 06/26/2025 Age: 59Physician: MD Freitas Timothy Dob: 1965Examination: XR KNEE 4 VIEWS RIGHT EXAMINATION: [...] right knee joint effusion. Electronically signed in [employer] by: Jose Cazares MD on:06/26/2025 11:22 AM cc: Page PAGE 1 of [facility] 1 Randy Freitas MD [address] [place] [address], [phone], [facility] 07/02/2025 15:48:47 Xr, Hand : [address] [address] Name: Juan Carlos Ibarra Date: 06/26/2025 Age: 59Physician: MD Freitas Timothy : 1965Examination: XR HANDS BILATERAL PA EXAMINATION: XR [...] slightly greater than right. Electronically signed in Ubidynecribe by: Jose Cazares MD on:06/26/2025 11:24 AM cc: Page PAGE 1 of [employer] 1 Randy Freitas MD [address] [place] [address], [phone], [facility] 07/02/2025 15:48:47 Xr, Shoulder, 2 Or More View : [address] [address] Name: Juan Carlos Ibarra Date: 06/26/2025 Age: 59Physician: MD Zena, Randy : 1965Examination: XR SHOULDER COMPLETE RIGHT EXAMINATION: XR [...] 1 of [facility] 1 Randy Freitas MD [address] [place] [address], [phone], [facility] 07/02/2025 15:49:21 Problems Name Problem SNOMED Code Status Onset Date Resolution Date Notes Provider Name and Address Organization Details Recorded Time Primary gonarthros is, bilateral 756982993 Active 2024 Not Available [facility] 22:10:58 Psoriatic arthritis 421401296 Active 2024 Not Available [facility] 22:10:58 Pain of bilateral knee regions 8931791107372 02 Active 2024 Not Available [facility] 22:10:58 Pain of bilateral hands 0143033225438 9109 Active 2024 Not Available [facility] 22:10:58 Pain of hip region 08289644 Active 2024 Not Available [facility] 22:10:58 Pain of bilateral shoulder regions Active 2024 Not Available [facility] 22:10:58 Psoriasis 7977094 Active 2024 Not Available [facility] 22:11:07 Problem Notes None recorded. Medical Equipment None Reported. Allergies Allergen ID Allergen Name Allergen Category Reaction Reaction Severity Criticality Documentation Date Start Date Code Code System Note Provider Name and Address Organization Details Recorded Time 7437490 Otezla medicatio n headache Not available Not available 08/02/2025 49388 33 RxNorm Kelsie Tejjose roberto [facility] 5 09:06:59 Medications Name Sig Start Date [...] Last Updated DateTime 172.72 cm 30.7 kg/m2 53805.6 6 g 73 /min 97 % 130/68 mm[Hg] Triny Bo [facility] 09:58:41 Social History Question Answer Notes LastModified by Organizat ion Details LastModified Time Tobacco Smoking Status Former Smoker Triny Bo [facility] 06/26/2025 10:01:46 When Did You Quit Smoking? 1-5yearssinc elastcigaret te [email or web address] Information not available 06/26/2025 What Was The Date Of Your Most Recent Tobacco Screening? 06/26/2025 [email or web address] Information not available 06/26/2025 How Many Years Have You Smoked Tobacco? 35 Information not available 06/26/2025 Sex: Unknown Functional Status None recorded. Mental Status None recorded. Family History Nothing Reported. Medical History No medical history recorded. Immunizations Vaccine Type Date Status Note Provider Nam e and Address Organization Details Recorded Time Hep A, adult 3 completed Not Available [facility] 2025 08:48:40 Pneumococcal conjugate PCV 13 1 completed Not Available [facility] 2025 08:48:40 zoster recombinant 1 completed Not Available [facility] 2025 08:48:40 COVID-19, mRNA, LNP-S, PF, 30 mcg/0.3 mL dose 1 completed Not Available [facility] 2025 08:48:40 COVID-19, mRNA, LNP-S, PF, 30 mcg/0.3 mL dose 1 completed Not Available [facility] 2025 08:48:40 Influenza, split virus, quadrivalent, PF 1 completed Not Available [facility] 2025 08:48:40 zoster recombinant 2 completed Not Available [facility] 2025 08:48:40 COVID-19, mRNA, LNP-S, PF, 30 mcg/0.3 mL dose, vicki-sucrose 2 completed Not Available [facility] 2025 08:48:40 Tdap 3 completed Not Available [facility] 2025 08:48:40 Past Encounters Encounter ID Performer Location Encounter Start Date Encounter Closed Date Diagnosis/Indication Diagnosis SNOMED-CT Code Diagnosis ICD10 Code Diagnosis IMO Codes Diagnosis Note [id number] Randy Freitas MD [address] [facility] ([place]) [address] [place] [address] 06/26/2025 09:38:28 06/27/2025 07:08:58 Primary gonarthrosis, bilateral 140670027 M17.0 9180045 Psoriatic arthritis 1563 14904 L40.59 8289120 Health Concerns Section Related Observation LastModified by Organization Detai ls LastModified Time None Recorded Concern Status LastModified by Organization Details LastModified Time None Recorded Payers Encounter Date Sequence Insurance Name Policy Number Policy Auguste Covered Member ID Auguste Member ID Guarantor Name 06/26/2025 1 [employer] ([facility] [id number] Juan Carlos Ibarra [id number] Juan Carlos Ibarra Notes Date Note Type [...] medication list. Randy Freitas MD [address] [place] [address], [phone], [facility] 06/26/2025 11:19:05
--- OUTSIDE RECORDS SUMMARY | 2025-09-06 10:41 | XMS_ITS | Continuity of Care Document ---
Author Organization [facility], [address] [facility] ([place]) Address [address] [address] Care Team Providers Care Cinder Block Maker Name Role Phone PATRICK RIOJAS Primary Care Provider RANDY FREITAS Pot Lining Supervisor Assessment Encounter Date Assessment Date Assessment LastModified by Organization Details LastModified Time 2025 2025 1. Psoriatic arthritis, improving on [...] 2. Psoriasis, limited plaque disease - Continue dermatology-direc akilah topical regimen as needed for flares - Anticipate further improvement with ongoing adalimumab therapy 3. Osteoarthritis (hands with Heberden's nodes; knees with patellofemoral crepitus) - Activity modification as needed during high-demand work periods - Acetaminophen as needed; defer NSAIDs pending GI evaluation 4. Abdominal pain, left upper quadrant radiating to back - Follow up with primary care for evaluation of gastrointestinal/ hepatobiliary causes - Defer NSAIDs until evaluation is complete 5. Medication intolerance to apremilast (Otezla) - Remains discontinued due to prior significant GI side effects - Documented allergy/intoleran ce reviewed 6. Insurance change affecting biologic authorization [...] Modified Time Details Appointments Establish ed Patient [id number] 2025 09:15A M Dr. Randy Freitas Not available Not available Not available Lab None recorded. Referral None recorded. Procedures None recorded. Surgeries None recorded. Imaging None recorded. Medication Orders None recorded. Patient TargetsNo targets recorded. Patient InstructionsNo instructions recorded. Reason for Referral None Reported. Problems Name Problem SNOMED Code Status Onset Date Resolution Date Notes Provider Name and Address Organization Details Recorded Time Primary gonarthros is, bilateral 524641724 Active 2024 Not Available [facility] 22:10:58 Psoriatic arthritis 960419659 Active 2024 Not Available [facility] 22:10:58 Pain of bilateral knee regions 4898752088518 02 Active 2024 Not Available [facility] 22:10:58 Pain of bilateral hands 0363800394459 9109 Active 2024 Not Available [facility] 22:10:58 Pain of hip region 33407481 Active 2024 Not Available [facility] 5 22:10:58 Pain of bilateral shoulder regions Active 2024 Not Available [facility] 22:10:58 Psoriasis 6439344 Active 2024 Not Available [facility] 22:11:07 Problem Notes None recorded. Medical Equipment None Reported. Allergies Allergen ID Allergen Name Allergen Category Reaction Reaction Severity Criticality Documentation Date Start Date Code Code System Note Provider Name and Address Organization Details Recorded Time [id number] Otezla medicatio n headache Not available Not available 08/02/2025 30747 33 [facility] 09:06:59 Medications Name Sig Start [...] t Available Vitals Date Recorded Body height Heart rate Oxygen saturation Pain severity - 0-10 verbal numeric rating [Score] - Reported Systolic And Diastolic Provider Name and Address Organization Details Last Updated DateTime 2025 172.72 cm 67 /min 99 % 0 130/74 mm[Hg] Peewee Cyr [facility] 09:03:57 Social History Question Answer Notes LastModified by Organizat ion Details LastModified Time Tobacco Smoking Status Former Smoker [facility]iny [facility] 06/26/2025 10:01:46 When Did You Quit Smoking? 1-5yearssinc elastcigaret te Information not available 06/26/2025 What Was The Date Of Your Most Recent Tobacco Screening? 06/26/2025 [email or web address] Information not available 06/26/2025 How Many Years Have You Smoked Tobacco? 35 [email or web address] Information not available 06/26/2025 Sex: Unknown Functional Status None recorded. Mental Status None recorded. Family History Nothing Reported. Medical History No medical history recorded. Immunizations Vaccine Type Date Status Note Provider Nam e and Address Organization Details Recorded Time Hep A, adult 3 completed Not Available [facility] 2025 08:48:40 Pneumococcal conjugate PCV 13 1 completed Not Available [facility] 2025 08:48:40 zoster recombinant 1 completed Not Available [facility] 2025 08:48:40 COVID-19, mRNA, LNP-S, PF, 30 mcg/0.3 mL dose 1 completed Not Available [facility] 2025 08:48:40 COVID-19, mRNA, LNP-S, PF, 30 mcg/0.3 mL dose 1 completed Not Available [facility] 2025 08:48:40 Influenza, split virus, quadrivalent, PF 1 completed Not Available [facility] 2025 08:48:40 zoster recombinant 2 completed Not Available [facility] 2025 08:48:40 COVID-19, mRNA, LNP-S, PF, 30 mcg/0.3 mL dose, vicki-sucrose 2 completed Not Available [facility] 2025 08:48:40 Tdap 3 completed Not Available [facility] 2025 08:48:40 Past Encounters Encounter ID Performer Location Encounter Start Date Encounter Closed Date Diagnosis/Indication Diagnosis SNOMED-CT Code Diagnosis ICD10 Code Diagnosis IMO Codes Diagnosis Note [id number] Randy Freitas MD [address] [place] [address] [facility] [place] ([place]) [address] [place] [phone] 2025 08:45:51 09/05/2025 07:16:17 Psoriatic arthritis 265528962 L40.50 L40.59 34678 4294009 Primary go narthrosis, bilateral 759578107 M17.0 5170124 Psoriasis 9384663 L40.9 90842 Health Concerns Section Related Observation LastModified by Organization Detai ls LastModified Time None Recorded Concern Status LastModified by Organization Details LastModified Time None Recorded Payers Encounter Date Sequence Insurance Name Policy Number Policy Auguste Covered Member ID Auguste Member ID Guarantor Name 2025 1 [employer] ([id number] Juan Carlos Ibarra [id number] Juan Carlos Ibarra Notes Date Note Type Note Provider Name and Address Organization Details Recorded Time 2025 text/html Juan Carlos Ibarra is a [...] detailed today. Randy Freitas MD [address] [facility], [place], [address], [facility] 2025 09:21:36
--- OUTSIDE RECORDS SUMMARY | 2025-09-06 10:41 | XMS_ITS | Clinical Summary ---
Author Organization [facility] Address [address] [place] [id number] Care Team Providers Care Customer Success Intern Name Role Phone Unavailable Primary Care Provider [...] of 3 - 19+ 3-dose series) 1986 Pneumococcal Vaccine: 50+ Ye ars (1 of 1 - PCV) 2017 Zoster Vaccines (1 of 2) 2017 COVID-19 Vaccine ( - 2024-2 6 season) 2025 Influenza Adult (#1) 2025 Hepatitis A Vaccines Aged Out No long er eligible based on patient's age to complete this topic Meningococcal B Vaccine Aged Out No l onger eligible based on patient's age to complete this topic Meningococcal Vaccine Aged Out No hilary burke eligible based on patient's age to complete this topic RSV Immunizations Under 20 Months Aged Out No longer eligible based on patient's age to complete this topic
[2025-09-06 11:18] LABS: Add Urine Microscopic? NO; Appearance Urine Clear (Clear); Glucose Urine UA Negative (Negative); Leukocyte Esterase Ur Negative (Negative); Nitrate Urine Negative (Negative); Specific Grav Ur 1.010 (1.010-1.020)
[2025-09-06 11:21] LABS: Hematocrit 42.0 % (40.0-54.0); Hemoglobin 14.1 g/dL (14.0-18.0); Mean Corpuscular HGB Conc 33.6 g/dL (32-36); Mean Corpuscular Hemoglobin 30.1 pg (27.0-31.0); Mean Corpuscular Volume 89.7 fL (78.0-102.0); Platelet Count Result 368 K/mm3 (150-420); Red Blood Count 4.68 M/mm3 (4.70-6.10); White Blood Count 10.1 K/mm3 (4.8-10.8)
[2025-09-06 11:32] LABS: Alanine Aminotransferase 32 U/L (6-50); Albumin Level 4.9 g/dL (3.5-5.1); Alkaline Phosphatase 80 U/L (38-126); Amylase 52 U/L (30-110); Anion Gap 12 mmol/L (4-12); Aspartate Amino Transferase 30 U/L (17-59); Bilirubin,Total 1.2 mg/dL (0.2-1.3); Blood Urea Nitrogen 10 mg/dL (9-20); Calcium 9.8 mg/dL (8.4-10.2); Carbon Dioxide 24 mmol/L (22-30); Chloride 107 mmol/L (98-107); Estimated Glomerular Filt Rate > 60; Glucose 99 mg/dL (65-110); Lipase 78 U/L (23-300); Osmolality Calculated 295 mOsm/kg (285-295); Potassium 4.8 mmol/L (3.4-5.0); Sodium 143 mmol/L (137-145); Total Protein 7.8 g/dL (6.3-8.2)
== END 2025-09-06 10:26 | disposition home or self-care (01) ==
PROVIDERS: PCP Internal Medicine; Visit Provider Internal Medicine
DX: R10.9 Unspecified abdominal pain (principal)
CPT/HCPCS: 36415; 74177; 80053; 81003; 82150; 83605; 83690; 85027; Q9967